=== PATIENT | female | born 1995 | race Hispanic/Latino ===

== ENCOUNTER 2018-02-20 18:29 | Emergency (ER) | payer OTHER, SELFPAY ==
[2018-02-20] MEDS ORDERED: ONDANSETRON 4 MG/2 ML VIAL ONE (19:23)
[2018-02-20] MEDS ORDERED: NA CHLORIDE 0.9% 1,000 ML ONE (19:23)
[2018-02-20] MEDS ORDERED: FAMOTIDINE 20 MG/2 ML VIAL IV ONE (19:23)
[2018-02-20 19:44] LABS: Absolute Lymphocytes (CBC) 1.2 K/uL (0.7-4.9); Absolute Monocytes 0.5 K/uL (0.1-1.3); Absolute Neutrophil 2.7 K/uL (1.8-8.0); Basophils % 0.4 % (0-1.3); Eosinophils % 0.9 % (0-4.4); Lymphocytes % 26.3 % (15.3-44.8); MCH 30.9 pg (27.0-35.0); MCV 90.6 fL (80-100); MPV 10.6 fL (7.6-11.3); Monocytes % 11.6 % (3.3-12.3); RBC Red Blood Cell Count 4.19 M/uL (3.86-4.86)
--- NOTE | 2018-02-20 20:10 | RAD REPORT ---
EXAM DESCRIPTION: RAD - Chest Single View - 02/20/2018 7:49 pm CLINICAL HISTORY: Abdominal pain COMPARISON: June 2015 TECHNIQUE: AP portable chest image was obtained 1941 hours . FINDINGS: Lungs are clear. Heart and vasculature are normal. No measurable pleural effusion and no p neumothorax. No acute bony abnormality seen. No acute aortic findings suspected. IMPRESSION: No acute cardiopulmonary process. No significant interval change.
[2018-02-20 20:13] LABS: ALT/SGPT 21 U/L (12-78); AST/SGOT 16 U/L (15-37); Albumin 3.9 g/dL (3.4-5.0); Alkaline Phosphatase 62 U/L (45-117); BUN Blood Urea Nitrogen 9 mg/dL (7-18); Bicarbonate 26 mmol/L (21-32); Bilirubin Direct 0.1 mg/dL (0-0.2); Bilirubin Total 0.4 mg/dL (0.2-1.0); Glucose Level 84 mg/dL (74-106); Lipase 148 U/L (73-393); Potassium 3.2 mmol/L (3.5-5.1); Protein, Total 7.9 g/dL (6.4-8.2); Sodium Level 143 mmol/L (136-145)
--- NOTE | 2018-02-20 20:17 | RAD REPORT ---
EXAM DESCRIPTION: US - Abdomen Exam Limited - 02/20/2018 7:48 pm CLINICAL HISTORY: Abdominal pain COMPARISON: CT study March 2016 FINDINGS: No gallstones, sludge or other abnormalities within the gallbladder lumen. There is no wal l thickening or pericholecystic fluid. No common duct stone or biliary tree dilatation identified. IMPRESSION: Normal gallbladder and biliary tree ultrasound.
[2018-02-20 21:10] LABS: Urine Blood 1+ (NEG); Urine Glucose NEGATIVE (NEG); Urine Protein TRACE (NEG); Urine Specific Gravity >1.030 (1.005-1.030); Urine pH 5.5 (5.0-7.0)
[2018-02-20] MEDS ORDERED: POTASSIUM 25 MEQ EFFERV TAB ONE (21:18)
--- NOTE | 2018-02-20 21:56 | ER ---
Nurse's Notes [facility] Name: Milka Sanchez Age: 22 yrs Sex: Female : 1995 Arrival Date: 02/20/2018 Time: 18:31 Bed 26 Private MD: Diagnosis: Nausea and vomiting;Unspecified abdominal pain Presentation: 02/20 18:40 Presenting complaint: Patient states: lower abd pain, nausea and vomiting since last aa5 night. Pt denies diarrhea. Transition of care: patient was not received from another setting of care. Onset of symptoms was February 19, 2018. Risk Assessment: Do you want to hurt yourself or someone else? Patient reports no desire to harm self or others. Initial Sepsis Screen: Does the patient meet any 2 criteria? No. Patient's initial sepsis screen is negative. Does the patient have a suspected source of infection? No. Patient's initial sepsis screen is negative. Care prior to arrival: None. 18:40 Method Of Arrival: Ambulatory aa5 18:40 Acuity: QUAN 3 aa5 Triage Assessment: 23:00 General: Appears in no apparent distress. comfortable, Behavior is calm, cooperative. mg2 EENT: No deficits noted. Neuro: Level of Consciousness is awake, alert, obeys commands, Oriented to person, place, time, situation. Cardiovascular: No deficits noted. Respiratory: No deficits noted. GI: Pt is actively vomiting undigested food. : No deficits noted. Derm: Skin is intact, is healthy with good turgor, Skin is pink, warm \T\ dry. normal. Musculoskeletal: No signs and/or symptoms reported regarding the musculoskeletal system. 02/21 00:07 Pain: Complains of pain in abdomen. 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 - Social history:: Smoking status: Patient/guardian denies using tobacco. - Ebola Screening: : No symptoms or risks identified at this time. Screenin:30 Abuse screen: Denies threats or abuse. Denies injuries from another. Nutritional mg2 screening: No deficits noted. Tuberculosis screening: No symptoms or risk factors identified. Fall Risk IV access (20 points). Assessment: 22:00 GI: Bowel sounds present X 4 quads. Abd is soft and non tender. mg2 22:06 General: Appears in no apparent distress. uncomfortable, Behavior is calm, cooperative. mg2 Vital Signs: 18:41 BP 98 / 73; Pulse 95; Resp 18 S; Temp 98.5(TE); Pulse Ox 98% on R/A; Weight 60.78 kg aa5 (R); Height 5 ft. 2 in. (157.48 cm) (R); Pain 10/10; 19:31 BP 91 / 58; Pulse 79; Resp 18; Pulse Ox 100% on R/A; mg2 21:16 BP 90 / 65; Pulse 83; Resp 18; Pulse Ox 100% on R/A; Pain 0/10; mg2 18:41 Body Mass Index 24.51 (60.78 kg, 157.48 cm) aa5 ED Course: 18:31 Patient arrived in ED. tw3 18:41 Triage completed. aa5 18:41 Arm band placed on. aa5 18:48 Bob Jensen PA is PHCP. cp 18:48 Sav Salazar MD is Attending Physician. cp 18:48 Luis Angel Layne RN is Primary Nurse. mg2 19:30 No provider procedures requiring assistance completed. Inserted saline lock: 20 gauge mg2 in right antecubital area, using aseptic technique. Blood collected. 19:31 Patient has correct armband on for positive identification. Bed in low position. Call mg2 light in reach. Side rails up X 1. Pulse ox on. NIBP on. 19:48 US Abdomen Limited: RUQ/epigastric area In Process Unspecified. EDMS 19:49 XRAY Chest (1 view) In Process Unspecified. EDMS 22:15 IV discontinued, intact, bleeding controlled, No redness/swelling at site. Pressure mg2 dressing applied. Administered Medications: 19:29 Drug: NS 0.9% 1000 ml Route: IV; Rate: 1 bolus; Site: right antecubital; mg2 21:10 Follow up: Response: No adverse reaction; IV Status: Completed infusion mg2 19:30 Drug: Zofran 4 mg Route: IVP; Site: right antecubital; mg2 21:09 Follow up: Response: No adverse reaction; Marked relief of symptoms mg2 19:30 Drug: Pepcid 20 mg Route: IVP; Site: right antecubital; mg2 21:09 Follow up: Response: No adverse reaction; Marked relief of symptoms mg2 21:15 Drug: Potassium Effervescent Tablet 50 mEq Route: PO; mg2 21:15 Follow up: Response: No adverse reaction mg2 Outcome: 21:55 Discharge ordered by MD. cp 22:20 Discharged to home ambulatory, with family. mg2 22:20 Condition: stable 22:20 Discharge instructions given to patient, family, Instructed on discharge instructions, follow up and referral plans. medication usage, Demonstrated understanding of instructions, follow-up care, medications, Prescriptions given X 2. 22:22 Patient left the ED. mg2 Signatures: Dispatcher [employer] EDDory Mcbride, RN RN aa5 Bob Jensen PA PA cp Wade, Emily tw3 Luis Angel Layne RN RN mg2 Corrections: (The following items were deleted from the chart) 02/21 00:26 02/20 22:16 Patient left the ED. mg2 mg2
--- NOTE | 2018-02-20 21:56 | EDPHYS ---
Physician Documentation [facility] Name: Milka Sanchez Age: 22 yrs Sex: Female : 1995 Arrival Date: 02/20/2018 Time: 18:31 Bed 26 Private MD: ED Physician Sav Salazar HPI: 02/20 19:00 This 22 yrs old Female presents to ER via Ambulatory with complaints of cp Abdominal Pain. 19:00 The patient presents with abdominal pain in the upper abdomen. cp 19:00 Onset: The symptoms/episode began/occurred yesterday. Associated signs and symptoms: cp Pertinent positives: nausea and vomiting, Pertinent negatives: constipation, diarrhea, dysuria, fever, vomiting blood. Severity of pain: in the emergency department the pain is unchanged despite home interventions. 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 - Social history:: Smoking status: Patient/guardian denies using tobacco. - Ebola Screening: : No symptoms or risks identified at this time. ROS: 19:08 Constitutional: Positive for poor PO intake, Negative for body aches, chills, fever. cp 19:08 Eyes: Negative for injury, pain, redness, and discharge. cp 19:08 ENT: Negative for drainage from ear(s), ear pain, sore throat, difficulty swallowing, difficulty handling secretions. 19:08 Cardiovascular: Negative for chest pain, edema, palpitations. 19:08 Respiratory: Negative for cough, shortness of breath, wheezing. 19:08 Abdomen/GI: Positive for abdominal pain, nausea and vomiting, Negative for diarrhea, constipation, hematemesis, black/tarry stool, rectal bleeding. 19:08 Back: Negative for radiated pain. 19:08 : Positive for vaginal bleeding, Negative for urinary symptoms. 19:08 Skin: Negative for cellulitis, rash. 19:08 Neuro: Negative for altered mental status, dizziness, headache, weakness. 19:08 All other systems are negative. Exam: 19:13 Constitutional: The patient appears in no acute distress, alert, awake, non-toxic, well cp developed, well nourished, uncomfortable. 19:13 Head/Face: Normocephalic, atraumatic. Eyes: Pupils equal round and reactive to light, cp extra-ocular motions intact. Lids and lashes normal. Conjunctiva and sclera are non-icteric and not injected. Cornea within normal limits. Periorbital areas with no swelling, redness, or edema. ENT: Nares patent. No nasal discharge, no septal abnormalities noted. Tympanic membranes are normal and external auditory canals are clear. Oropharynx with no redness, swelling, or masses, exudates, or evidence of obstruction, uvula midline. Mucous membranes moist. Neck: Trachea midline, no thyromegaly or masses palpated, and no cervical lymphadenopathy. Supple, full range of motion without nuchal rigidity, or vertebral point tenderness. No Meningismus. Chest/axilla: Normal chest wall appearance and motion. Nontender with no deformity. No lesions are appreciated. 19:13 Cardiovascular: Rate: normal, Rhythm: regular, Heart sounds: murmur, not appreciated. 19:13 Respiratory: the patient does not display signs of respiratory distress, Respirations: normal, no use of accessory muscles, no retractions, no splinting, no tachypnea, labored breathing, is not present, Breath sounds: are clear throughout, no decreased breath sounds, no stridor, no wheezing. 19:13 Abdomen/GI: Inspection: abdomen appears normal, Bowel sounds: active, all quadrants, Palpation: soft, in all quadrants, moderate abdominal tenderness, in the epigastric area, right upper quadrant and left upper quadrant, rebound tenderness, is not appreciated, voluntary guarding, is elicited in the epigastric area, right upper quadrant and left upper quadrant. 19:13 Back: ROM is normal. 19:13 Skin: cellulitis, is not appreciated, no rash present. 19:13 Neuro: Orientation: to person, place \T\ time. Mentation: lucid, able to follow commands, Cerebellar function: is grossly normal, Motor: moves all fours, strength is normal, Sensation: no obvious gross deficits. Vital Signs: 18:41 BP 98 / 73; Pulse 95; Resp 18 S; Temp 98.5(TE); Pulse Ox 98% on R/A; Weight 60.78 kg aa5 (R); Height 5 ft. 2 in. (157.48 cm) (R); Pain 10/10; 19:31 BP 91 / 58; Pulse 79; Resp 18; Pulse Ox 100% on R/A; mg2 21:16 BP 90 / 65; Pulse 83; Resp 18; Pulse Ox 100% on R/A; Pain 0/10; mg2 18:41 Body Mass Index 24.51 (60.78 kg, 157.48 cm) aa5 MDM: 18:48 Patient medically screened. cp 19:00 Differential diagnosis: cholecystitis, Cholelithiasis, gastritis, non-specific abd cp pain, pancreatitis, Peptic Ulcer Disease, Perf. Duodenal Ulcer, Perf. Gastric Ulcer, Pelvic Inflammatory Disease, Pyelonephritis, Ureterolithiasis, urinary tract infection. 21:55 Data reviewed: vital signs, nurses notes, lab test result(s), radiologic studies, cp ultrasound. 21:55 Counseling: I had a detailed discussion with the patient and/or guardian regarding: the cp historical points, exam findings, and any diagnostic results supporting the discharge/admit diagnosis, lab results, radiology results, to return to the emergency department if symptoms worsen or persist or if there are any questions or concerns that arise at home. Response to treatment: the patient's symptoms have markedly improved after treatment, VSS. Pain and nausea markedly improved and vomiting resolved. Will discharge to home for continued monitoring. 02/20 19:14 Order name: Basic Metabolic Panel; Complete Time: 20:27 cp 02/20 19:14 Order name: CBC with Diff; Complete Time: 20:27 cp 02/20 19:14 Order name: Creatinine for Radiology; Complete Time: 20:27 cp 02/20 19:14 Order name: Hepatic Function; Complete Time: 20:27 cp 02/20 19:14 Order name: Lipase; Complete Time: 20:27 cp 02/20 19:21 Order name: Magnesium; Complete Time: 20:27 cp 02/20 19:22 Order name: US Abdomen Limited: RUQ/epigastric area; Complete Time: 20:27 cp 02/20 19:22 Order name: XRAY Chest (1 view); Complete Time: 20:27 cp 02/20 19:28 Order name: Urine Dipstick--Ancillary (enter results); Complete Time: 21:19 mw2 02/20 19:28 Order name: Urine --Ancillary (enter results); Complete Time: 21:19 mw2 02/20 18:54 Order name: Urine Dipstick-Ancillary (obtain specimen); Complete Time: 19:14 cp 02/20 18:54 Order name: Urine Test (obtain specimen); Complete Time: 19:14 cp 02/20 19:14 Order name: IV Saline Lock; Complete Time: 19:14 cp 02/20 19:14 Order name: Labs collected and sent; Complete Time: 19:14 cp 02/20 21:20 Order name: PO challenge; Complete Time: 21:38 cp Administered Medications: 19:29 Drug: NS 0.9% 1000 ml Route: IV; Rate: 1 bolus; Site: right antecubital; mg2 21:10 Follow up: Response: No adverse reaction; IV Status: Completed infusion mg2 19:30 Drug: Zofran 4 mg Route: IVP; Site: right antecubital; mg2 21:09 Follow up: Response: No adverse reaction; Marked relief of symptoms mg2 19:30 Drug: Pepcid 20 mg Route: IVP; Site: right antecubital; mg2 21:09 Follow up: Response: No adverse reaction; Marked relief of symptoms mg2 21:15 Drug: Potassium Effervescent Tablet 50 mEq Route: PO; mg2 21:15 Follow up: Response: No adverse reaction mg2 Disposition: 02/20/18 21:55 Discharged to Home. Impression: Nausea and vomiting, Unspecified abdominal pain. - Condition is Stable. - Discharge Instructions: Abdominal Pain, Adult, Nausea and Vomiting, Adult. - Prescriptions for Bentyl 20 mg Oral Tablet - take 1 tablet by ORAL route every 6 hours As needed; 20 tablet. promethazine 25 mg Oral Tablet - take 1 tablet by ORAL route every 6 hours As needed; 20 tablet. - Medication Reconciliation Form, Thank You Letter, Antibiotic Education, Prescription Opioid Use, Work release form form. - Follow up: Private Physician; When: 2 - 3 days; Reason: Recheck today's complaints. - Problem is new. - Symptoms have improved. Signatures: Dispatcher [employer] Dory Disla, RN RN aa5 Bob Jensen PA PA cp Gardose, Michele, RN RN mg2 Corrections: (The following items were deleted from the chart) 22:16 21:55 02/20/2018 21:55 Discharged to Home. Impression: Nausea and vomiting; Unspecified mg2 abdominal pain. Condition is Stable. Forms are Medication Reconciliation Form, Thank You Letter, Antibiotic Education, Prescription Opioid Use. Follow up: Private Physician; When: 2 - 3 days; Reason: Recheck today's complaints. Problem is new. Symptoms have improved. cp
[2018-02-20 22:21] VITALS: TEMP 98.5
[2018-02-20 22:22] VITALS: O2SAT 100
[2018-02-20 22:23] VITALS: BP 90/65
== END 2018-02-20 22:16 | disposition home or self-care (01) ==
LOC: ER 18:29
DX: R10.10 Upper abdominal pain, unspecified (principal); R11.2 Nausea with vomiting, unspecified; Z88.0 Allergy status to penicillin; Z88.6 Allergy status to analgesic agent
CPT/HCPCS: 36415; 71045; 76705; 80048; 80076; 81003; 81025; 83690; 83735; 85025; 96361; 96374; 96375; 99284; J2405; J7030

== ENCOUNTER 2018-04-23 18:39 | Emergency (ER) | payer SELFPAY ==
[2018-04-23] MEDS ORDERED: CLINDAMYCIN 900MG/D5W 900 MG/50 ML IVPB IV ONE (20:02)
[2018-04-23] MEDS ORDERED: NA CHLORIDE 0.9% 1,000 ML ONE (20:03)
[2018-04-23] MEDS ORDERED: DEXAMETHASONE 10 MG/ML VIAL ONE ×2 (20:03→20:43)
[2018-04-23] MEDS ORDERED: NA CHLORIDE 0.9% 100 ML IV ONE (20:03)
[2018-04-23 20:30] LABS: Urine Blood 2+ (NEG); Urine Glucose NEGATIVE (NEG); Urine Protein 2+ (NEG); Urine Specific Gravity >1.030 (1.005-1.030)
--- NOTE | 2018-04-23 20:35 | ER ---
Nurse's Notes [facility] Name: Milka Sanchez Age: 22 yrs Sex: Female : 1995 Arrival Date: 04/23/2018 Time: 18:41 Bed 26 Private MD: None, None Diagnosis: Acute tonsillitis Presentation: 04/23 18:59 Presenting complaint: Patient states: "My tonsils have been swollen for 4 days, my ears aj1 hurt and the back of my neck hurts" Patient's voice sounds muffled. Tonsil are enlarged bilaterally, white patchy exudate noted. Transition of care: patient was not received from another setting of care. Onset of symptoms was April 19, 2018. Risk Assessment: Do you want to hurt yourself or someone else? Patient reports no desire to harm self or others. Initial Sepsis Screen: Does the patient meet any 2 criteria? HR > 90 bpm. No. Patient's initial sepsis screen is negative. Does the patient have a suspected source of infection? No. Patient's initial sepsis screen is negative. Care prior to arrival: None. 18:59 Method Of Arrival: Ambulatory aj1 18:59 Acuity: QUAN 4 aj1 Triage Assessment: 19:04 General: Appears in no apparent distress. comfortable, Behavior is calm, cooperative, aj1 appropriate for age. Pain: Complains of pain in left aspect of posterior pharynx and right aspect of posterior pharynx Pain currently is 10 out of 10 on a pain scale. EENT: Throat is reddened has patchy exudate has enlarged tonsils bilaterally. Neuro: Level of Consciousness is awake, alert, obeys commands. Cardiovascular: Patient's skin is warm and dry. Respiratory: Airway is patent Respiratory effort is even, unlabored, Respiratory pattern is regular, symmetrical. 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 - Social history:: Smoking status: Patient uses tobacco products, denies chronic smoking, but will smoke occasionally. - Ebola Screening: : Patient denies travel to an Ebola-affected area in the 21 days before illness onset. - Family history:: not pertinent. Screenin:34 Abuse screen: Denies threats or abuse. Denies injuries from another. Nutritional rv screening: No deficits noted. Tuberculosis screening: No symptoms or risk factors identified. Fall Risk None identified. Assessment: 19:33 General: Appears in no apparent distress. comfortable, Behavior is calm, cooperative. rv Pain: Complains of pain in throat. Neuro: Level of Consciousness is awake, alert, obeys commands, Oriented to person, place, time, situation. Cardiovascular: Capillary refill < 3 seconds. Respiratory: Airway is patent. GI: No signs and/or symptoms were reported involving the gastrointestinal system. : No signs and/or symptoms were reported regarding the genitourinary system. EENT: Throat is reddened. Derm: Skin is intact. Musculoskeletal: No signs and/or symptoms reported regarding the musculoskeletal system. Vital Signs: 19:04 BP 100 / 61; Pulse 115; Resp 20; Temp 99.0; Pulse Ox 100% on R/A; Weight 58.97 kg (R); aj1 Height 5 ft. 2 in. (157.48 cm) (R); Pain 10/10; 21:19 BP 103 / 72; Pulse 98 MON; Resp 17 S; Pulse Ox 99% on R/A; rv 19:04 Body Mass Index 23.78 (58.97 kg, 157.48 cm) aj1 ED Course: 18:41 Patient arrived in ED. sb2 18:41 None, None is Private Physician. sb2 19:04 Triage completed. aj1 19:16 Bob Valdez MD is Attending Physician. [facility] 19:34 Patient has correct armband on for positive identification. Bed in low position. Call rv light in reach. Side rails up X 1. Adult w/ patient. Pulse ox on. NIBP on. 19:34 Patient placed in an exam room, on a stretcher, on pulse oximetry, Patient notified of rv wait time. 20:00 Inserted saline lock: 18 gauge in right antecubital area, using aseptic technique. rv Blood collected. 20:00 Initial lab(s) drawn, by mi, sent to lab. rv 20:09 Throat Culture Sent. rv 20:10 Traill Screen Profile Sent. rv 20:10 CBC with Diff Sent. rv 20:10 Comprehensive Metabolic Panel Sent. rv 20:34 Rosa M Huynh MD is Referral Physician. vanesa 21:18 No provider procedures requiring assistance completed. IV discontinued, bleeding rv controlled, No redness/swelling at site. Pressure dressing applied. Administered Medications: 20:10 Drug: NS 0.9% 1000 ml Route: IV; Rate: 1 bolus; Site: right antecubital; rv 20:36 Follow up: IV Status: Completed infusion; IV Intake: 1000ml rv 20:10 Drug: Decadron - Dexamethasone 10 mg Route: IVP; Site: right antecubital; rv 20:36 Follow up: Response: No adverse reaction rv 20:10 Drug: Clindamycin 900 mg Route: IVPB; Infused Over: 30 mins; Site: right antecubital; rv 20:36 Follow up: IV Status: Completed infusion; IV Intake: 50ml rv 20:35 Drug: Decadron - Dexamethasone 10 mg Route: IVP; Site: right antecubital; rv 21:20 Follow up: Response: No adverse reaction rv 21:20 Drug: Clindamycin 300 mg Route: PO; rv 21:20 Follow up: Response: Medication administered at discharge. rv Intake: 20:36 IV: 1000ml; Total: 1000ml. rv 20:36 IV: 50ml; Total: 1050ml. rv Outcome: 20:34 Discharge ordered by . vanesa 21:18 Discharged to home ambulatory. rv 21:18 Condition: good 21:18 Discharge instructions given to patient, Instructed on discharge instructions, follow up and referral plans. medication usage, Demonstrated understanding of instructions, follow-up care, medications, Prescriptions given X 1. 21:20 Patient left the ED. rv Signatures: Mayela Oneal, RN RN aj1 Bob Valdez MD MD cha Billeau, Sheri sb2 Maximo Encarnacion RN RN rv
--- NOTE | 2018-04-23 20:35 | EDPHYS ---
Physician Documentation [facility] Name: Milka Sanchez Age: 22 yrs Sex: Female : 1995 Arrival Date: 04/23/2018 Time: 18:41 Bed 26 Private MD: None, None ED Physician Bob Valdez HPI: 04/23 19:48 This 22 yrs old Female presents to ER via Ambulatory with complaints of vanesa Swollen Glands, Fever, Ear Pain. 19:48 The patient reports fever, that was measured at 100 degrees Fahrenheit. Onset: The vanesa symptoms/episode began/occurred 3 day(s) ago. Modifying factors: there are no obvious modifying factors. Associated signs and symptoms: Pertinent positives: chills. Severity of symptoms: At their worst the symptoms were moderate 3 day(s) ago, in the emergency department the symptoms are unchanged are worse. The patient has not experienced similar symptoms in the past. NITRO MAN: 19:04 LMP 04/18/2018 aj1 Historical: - Allergies: 19:04 Hydrocodone-Acetaminophen; aj1 19:04 PENICILLINS; aj1 - Home Meds: 19:04 None [Active]; aj1 - PMHx: 19:04 None; aj1 - PSHx: 19:04 Appendectomy; aj1 - Immunization history:: Flu vaccine is not up to date. - Social history:: Smoking status: Patient uses tobacco products, denies chronic smoking, but will smoke occasionally. - Ebola Screening: : Patient denies travel to an Ebola-affected area in the 21 days before illness onset. - Family history:: not pertinent. ROS: 19:48 Constitutional: Negative for fever, chills, and weight loss, Eyes: Negative for injury, vanesa pain, redness, and discharge, Neck: Negative for injury, pain, and swelling, Cardiovascular: Negative for chest pain, palpitations, and edema, Respiratory: Negative for shortness of breath, cough, wheezing, and pleuritic chest pain, Abdomen/GI: Negative for abdominal pain, nausea, vomiting, diarrhea, and constipation, Back: Negative for injury and pain, : Negative for injury, bleeding, discharge, and swelling, MS/Extremity: Negative for injury and deformity, Skin: Negative for injury, rash, and discoloration, Neuro: Negative for headache, weakness, numbness, tingling, and seizure, Psych: Negative for depression, anxiety, suicide ideation, homicidal ideation, and hallucinations, Allergy/Immunology: Negative for hives, rash, and allergies, Endocrine: Negative for neck swelling, polydipsia, polyuria, polyphagia, and marked weight changes, Hematologic/Lymphatic: Negative for swollen nodes, abnormal bleeding, and unusual bruising. 19:48 ENT: Positive for sinus congestion, sore throat. Exam: 19:48 Constitutional: This is a well developed, well nourished patient who is awake, alert, vanesa and in no acute distress. Head/Face: Normocephalic, atraumatic. Eyes: Pupils equal round and reactive to light, extra-ocular motions intact. Lids and lashes normal. Conjunctiva and sclera are non-icteric and not injected. Cornea within normal limits. Periorbital areas with no swelling, redness, or edema. Neck: Trachea midline, no thyromegaly or masses palpated, and no cervical lymphadenopathy. Supple, full range of motion without nuchal rigidity, or vertebral point tenderness. No Meningismus. Chest/axilla: Normal chest wall appearance and motion. Nontender with no deformity. No lesions are appreciated. Respiratory: Lungs have equal breath sounds bilaterally, clear to auscultation and percussion. No rales, rhonchi or wheezes noted. No increased work of breathing, no retractions or nasal flaring. Abdomen/GI: Soft, non-tender, with normal bowel sounds. No distension or tympany. No guarding or rebound. No evidence of tenderness throughout. Back: No spinal tenderness. No costovertebral tenderness. Full range of motion. Female : Normal external genitalia. Skin: Warm, dry with normal turgor. Normal color with no rashes, no lesions, and no evidence of cellulitis. MS/ Extremity: Pulses equal, no cyanosis. Neurovascular intact. Full, normal range of motion. Neuro: Awake and alert, GCS 15, oriented to person, place, time, and situation. Cranial nerves II-XII grossly intact. Motor strength 5/5 in all extremities. Sensory grossly intact. Cerebellar exam normal. Normal gait. Psych: Awake, alert, with orientation to person, place and time. Behavior, mood, and affect are within normal limits. 19:48 Cardiovascular: Rate: tachycardic, Rhythm: regular, Pulses: Pulses are 4+ in bilateral radial, brachial, femoral, popliteal, posterior tibial and and dorsalis pedis arteries.. Heart sounds: normal, JVD: is not appreciated. Vital Signs: 19:04 BP 100 / 61; Pulse 115; Resp 20; Temp 99.0; Pulse Ox 100% on R/A; Weight 58.97 kg (R); aj1 Height 5 ft. 2 in. (157.48 cm) (R); Pain 10/10; 21:19 BP 103 / 72; Pulse 98 MON; Resp 17 S; Pulse Ox 99% on R/A; rv 19:04 Body Mass Index 23.78 (58.97 kg, 157.48 cm) [facility] MDM: 19:16 Patient medically screened. [facility] 19:48 Data reviewed: vital signs, nurses notes, lab test result(s). [facility] 04/23 19:06 Order name: Strep; Complete Time: 19:48 [facility] 04/23 19:30 Order name: Throat Culture EDIL 04/23 19:48 Order name: [place] Screen Profile; Complete Time: 20:34 [facility] 04/23 19:48 Order name: CBC with Diff [facility] 04/23 19:48 Order name: Comprehensive Metabolic Panel; Complete Time: 20:40 [facility] 04/23 20:26 Order name: Urine Dipstick--Ancillary (enter results); Complete Time: 20:34 [facility] 04/23 19:48 Order name: Urine Dipstick-Ancillary (obtain specimen); Complete Time: 20:09 [facility] 04/23 19:48 Order name: Urine Test (obtain specimen); Complete Time: 20:09 [facility] 04/23 20:26 Order name: Urine --Ancillary (enter results); Complete Time: 20:34 [facility] 04/23 20:41 Order name: PO challenge: juice; Complete Time: 20:44 [facility] Administered Medications: 20:10 Drug: NS 0.9% 1000 ml Route: IV; Rate: 1 bolus; Site: right antecubital; rv 20:36 Follow up: IV Status: Completed infusion; IV Intake: 1000ml rv 20:10 Drug: Decadron - Dexamethasone 10 mg Route: IVP; Site: right antecubital; rv 20:36 Follow up: Response: No adverse reaction rv 20:10 Drug: Clindamycin 900 mg Route: IVPB; Infused Over: 30 mins; Site: right antecubital; rv 20:36 Follow up: IV Status: Completed infusion; IV Intake: 50ml rv 20:35 Drug: Decadron - Dexamethasone 10 mg Route: IVP; Site: right antecubital; rv 21:20 Follow up: Response: No adverse reaction rv 21:20 Drug: Clindamycin 300 mg Route: PO; rv 21:20 Follow up: Response: Medication administered at discharge. rv Disposition: 04/23/18 20:34 Discharged to Home. Impression: Acute tonsillitis. - Condition is Stable. - Discharge Instructions: Tonsillitis, Tonsillitis, [id number]. - Prescriptions for Clindamycin HCl 300 mg Oral Capsule - take 1 capsule by ORAL route every 6 hours for 10 days; 40 capsule. - Medication Reconciliation Form, Thank You Letter, Antibiotic Education, Prescription Opioid Use, Work release form form. - Follow up: Private Physician; When: 2 - 3 days; Reason: Recheck today's complaints, Continuance of care, Re-evaluation by your physician. Follow up: Rosa M Huynh; When: 2 - 3 days; Reason: Recheck today's complaints, Re-evaluation by your physician. - Problem is new. - Symptoms have improved. Signatures: Dispatcher [employer] EDMayela lAamo RN RN aj1 Bob Valdez MD MD cha Vicente, Ronaldo, RN RN rv Corrections: (The following items were deleted from the chart) 21:20 20:34 04/23/2018 20:34 Discharged to Home. Impression: Acute tonsillitis. Condition is rv Stable. Discharge Instructions: Tonsillitis, Tonsillitis, [id number]. Prescriptions for Clindamycin HCl 300 mg Oral Capsule - take 1 capsule by ORAL route every 6 hours for 10 days; 40 capsule. and Forms are Medication Reconciliation Form, Thank You Letter, Antibiotic Education, Prescription Opioid Use. Follow up: Private Physician; When: 2 - 3 days; Reason: Recheck today's complaints, Continuance of care, Re-evaluation by your physician. Follow up: Rosa M Huynh; When: 2 - 3 days; Reason: Recheck today's complaints, Re-evaluation by your physician. Problem is new. Symptoms have improved. vanesa
[2018-04-23 20:38] LABS: ALT/SGPT 25 U/L (12-78); AST/SGOT 15 U/L (15-37); Albumin 3.9 g/dL (3.4-5.0); Alkaline Phosphatase 87 U/L (45-117); BUN Blood Urea Nitrogen 7 mg/dL (7-18); Bicarbonate 24 mmol/L (21-32); Bilirubin Total 0.6 mg/dL (0.2-1.0); Glucose Level 73 mg/dL (74-106); Potassium 3.4 mmol/L (3.5-5.1); Protein, Total 8.6 g/dL (6.4-8.2); Sodium Level 133 mmol/L (136-145)
[2018-04-23 20:42] LABS: Absolute Lymphocytes (CBC) 1.1 K/uL (0.7-4.9); Absolute Monocytes 1.2 K/uL (0.1-1.3); Basophils % 0.3 % (0-1.3); Eosinophils % 0.1 % (0-4.4); Hematocrit 37.5 % (36.0-45.0); Lymphocytes % 10.6 % (15.3-44.8); MPV 10.3 fL (7.6-11.3); Monocytes % 11.5 % (3.3-12.3); RBC Red Blood Cell Count 4.22 M/uL (3.86-4.86)
[2018-04-23] MEDS ORDERED: CLINDAMYCIN HCL 150 MG CAP ONE (20:43)
[2018-04-23 23:00] VITALS: TEMP 99
[2018-04-23 23:02] VITALS: BP 103/72; O2SAT 99
== END 2018-04-23 21:20 | disposition home or self-care (01) ==
LOC: ER 18:39
DX: J03.90 Acute tonsillitis, unspecified (principal); Z72.0 Tobacco use; Z88.0 Allergy status to penicillin; Z88.5 Allergy status to narcotic agent
CPT/HCPCS: 36415; 80053; 81003; 81025; 85025; 86308; 87070; 87081; 96365; 96375; 99284; J1100; J7030

== ENCOUNTER 2019-02-27 20:12 | Emergency (ER) | payer SELFPAY ==
[2019-02-27 20:49] LABS: Urine Blood 2+ (NEG); Urine Glucose NEGATIVE (NEG); Urine Protein 2+ (NEG); Urine Specific Gravity >1.030 (1.005-1.030)
[2019-02-27] MEDS ORDERED: ONDANSETRON 4 MG/2 ML VIAL ONE (21:06)
[2019-02-27] MEDS ORDERED: NA CHLORIDE 0.9% 1,000 ML ONE (21:07)
[2019-02-27] MEDS ORDERED: SIMETHICONE 80 MG TAB ONE (21:07)
[2019-02-27 21:10] LABS: Urine Bacteria 20-50 /HPF (<20)
[2019-02-27 21:14] LABS: Urine Amorphous Sediment 3+ /HPF (NONE SEEN); Urine Culture Reflex Order NOT NEEDED
[2019-02-27 21:14] LABS: Absolute Lymphocytes (CBC) 1.9 K/uL (0.7-4.9); Basophils % 0.6 % (0-1.3); Hematocrit 35.6 % (36.0-45.0); Lymphocytes % 21.2 % (15.3-44.8); MPV 9.8 fL (7.6-11.3); RBC Red Blood Cell Count 3.93 M/uL (3.86-4.86)
[2019-02-27 21:32] LABS: ALT/SGPT 20 U/L (12-78); AST/SGOT 33 U/L (15-37); Albumin 3.8 g/dL (3.4-5.0); Alkaline Phosphatase 65 U/L (45-117); BUN Blood Urea Nitrogen 7 mg/dL (7-18); Bicarbonate 23 mmol/L (21-32); Bilirubin Direct < 0.1 mg/dL (0-0.2); Bilirubin Total 0.3 mg/dL (0.2-1.0); Glucose Level 91 mg/dL (74-106); Lipase 398 U/L (73-393); Potassium 3.2 mmol/L (3.5-5.1); Protein, Total 8.1 g/dL (6.4-8.2); Sodium Level 137 mmol/L (136-145)
--- NOTE | 2019-02-27 22:15 | ER ---
Nurse's Notes [facility] Name: Milka Sanchez Age: 23 yrs Sex: Female : 1995 Arrival Date: 02/27/2019 Time: 20:15 Bed 13 Private MD: Diagnosis: Upper abdominal pain, unspecified;Urinary tract infection, site not specified;Myalgia Presentation: 02/27 20:29 Presenting complaint: Patient states: C/O abdominal pain that started Friday, feels wh like cramping when she eats. Associated Symptoms of chills and fever nut denies NVD. Transition of care: patient was not received from another setting of care. Onset of symptoms was February 24, 2019. Risk Assessment: Do you want to hurt yourself or someone else? Patient reports no desire to harm self or others. Initial Sepsis Screen: Does the patient meet any 2 criteria? HR > 90 bpm. Does the patient have a suspected source of infection? Yes: Acute abdominal pain. Care prior to arrival: None. 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 - Social history:: Smoking status: Patient uses tobacco products. - Ebola Screening: : Patient negative for fever greater than or equal to 101.5 degrees Fahrenheit, and additional compatible Ebola Virus Disease symptoms Patient denies exposure to infectious person. Screenin:34 Abuse screen: Denies threats or abuse. Denies injuries from another. Nutritional screening: No deficits noted. Tuberculosis screening: No symptoms or risk factors identified. Fall Risk None identified. Assessment: 20:33 General: Appears in no apparent distress. Behavior is calm, cooperative, appropriate for age. Pain: Complains of pain in epigastric area and left upper quadrant Pain does not radiate. Pain currently is 8 out of 10 on a pain scale. Quality of pain is described as crampy, Pain began 2-3 days ago. Neuro: Level of Consciousness is awake, alert, obeys commands, Oriented to person, place, time, situation, Appropriate for age. Cardiovascular: Heart tones S1 S2. Respiratory: Airway is patent Respiratory effort is even, unlabored, Respiratory pattern is regular, symmetrical. GI: Abdomen is flat, non-distended, Bowel sounds present X 4 quads. Abd is soft. : No signs and/or symptoms were reported regarding the genitourinary system. EENT: No signs and/or symptoms were reported regarding the EENT system. Derm: Skin is intact, is healthy with good turgor, Skin is pink, warm \T\ dry. normal. Musculoskeletal: Circulation, motion, and sensation intact. 21:44 Reassessment: Patient appears in no apparent distress at this time. No changes from previously documented assessment. Patient and/or family updated on plan of care and expected duration. Pain level reassessed. Patient is alert, oriented x 3, equal unlabored respirations, skin warm/dry/pink. 22:42 Reassessment: Patient appears in no apparent distress at this time. No changes from previously documented assessment. Patient and/or family updated on plan of care and expected duration. Pain level reassessed. Patient is alert, oriented x 3, equal unlabored respirations, skin warm/dry/pink. Patient denies pain at this time. Patient states feeling better. Patient states symptoms have improved. Vital Signs: 20:31 BP 110 / 72; Pulse 117; Resp 18; Temp 98.5; Pulse Ox 98% ; Weight 69.85 kg; Height 5 wh ft. 2 in. (157.48 cm); 22:00 BP 103 / 62; Pulse 95; Resp 18; Temp 98.4; Pulse Ox 100% ; wh 20:31 Body Mass Index 28.17 (69.85 kg, 157.48 cm) ED Course: 20:15 Patient arrived in ED. es 20:20 Corinne Cantu is Primary Nurse. wh 20:30 [facility] Dumont [facility]-C [facility] snw 20:30 Bob Valdez MD is Attending Physician. snw 20:31 Triage completed. wh 20:35 Arm band placed on right wrist. wh 20:37 Patient has correct armband on for positive identification. Placed in gown. Bed in low wh position. Call light in reach. Side rails up X 1. Pulse ox on. NIBP on. 20:40 Urine Culture Sent. ds4 20:40 Urine Microscopic Only Sent. ds4 20:40 Inserted saline lock: 20 gauge in right antecubital area, using aseptic technique. Blood collected. By Naresh Funez TEch. 21:10 Lipase Sent. ds4 21:10 Basic Metabolic Panel Sent. ds4 21:10 Hepatic Function Sent. ds4 21:10 Creatinine for Radiology Sent. ds4 21:10 CBC with Diff Sent. ds4 21:11 Urine Culture Sent. ds4 21:11 Urine Microscopic Only Sent. ds4 22:08 Ultrasound completed. Patient tolerated well. Notified TUBE KNITTER/SANDRO buck. sg3 22:09 US Abdomen Limited In Process Unspecified. EDMS 22:42 IV discontinued, intact, bleeding controlled, No redness/swelling at site. 22:43 No provider procedures requiring assistance completed. Administered Medications: 21:10 Drug: NS 0.9% 1000 ml Route: IV; Rate: 1 bolus; Site: right antecubital; cc3 22:48 Follow up: Response: No adverse reaction; IV Status: Completed infusion 21:10 Drug: Zofran 4 mg Route: IVP; Site: right antecubital; cc3 22:47 Follow up: Response: No adverse reaction; Nausea is decreased 21:10 Drug: Simethicone 120 mg Route: PO; cc3 22:47 Follow up: Response: No adverse reaction 22:29 Drug: TORadol 30 mg Route: IVP; Site: right antecubital; 22:47 Follow up: Response: No adverse reaction 22:31 Drug: Bentyl 20 mg Route: PO; 22:47 Follow up: Response: No adverse reaction 22:33 Drug: Macrobid 100 mg Route: PO; 22:46 Follow up: Response: No adverse reaction Outcome: 22:14 Discharge ordered by . snw 22:43 Discharged to home ambulatory, with family. 22:43 Condition: stable 22:43 Discharge instructions given to patient, family, Instructed on discharge instructions, follow up and referral plans. medication usage, POC Abd Pain, UTI, Muscle Pain, Biliary Colic Demonstrated understanding of instructions, follow-up care, medications, POC Prescriptions given X 3. 22:48 Patient left the ED. Signatures: Dispatcher [employer] EDMS Larissa Dumont, AUTO TRANSPORT DRIVER-C AUTO TRANSPORT DRIVER-Csnw Carol Livingston Donovan ds4 Corinne Cantu Lasahun Grimm sg3 Rowan Sal cc3 Corrections: (The following items were deleted from the chart) 20:33 20:29 Initial Sepsis Screen: Does the patient meet any 2 criteria? No. Patient's initial sepsis screen is negative. Does the patient have a suspected source of infection? Yes: Acute abdominal pain
--- NOTE | 2019-02-27 22:16 | EDPHYS ---
Physician Documentation [facility] Name: Milka Sanchez Age: 23 yrs Sex: Female : 1995 Arrival Date: 02/27/2019 Time: 20:15 Bed 13 Private MD: ED Physician Bob Valdez HPI: 02/27 21:09 This 23 yrs old Female presents to ER via Ambulatory with complaints of snw Abdominal Pain, Fever. 21:09 The patient presents with abdominal pain in the epigastric area, in the upper abdomen. snw Onset: The symptoms/episode began/occurred suddenly, 2 day(s) ago, and became worse and became persistent. The symptoms do not radiate. Associated signs and symptoms: Pertinent positives: chills. The symptoms are described as crampy, vague. Severity of pain: At its worst the pain was moderate severe. The patient has not experienced similar symptoms in the past. The patient has not recently seen a physician. hx of appendectomy. 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 - Social history:: Smoking status: Patient uses tobacco products. - Ebola Screening: : Patient negative for fever greater than or equal to 101.5 degrees Fahrenheit, and additional compatible Ebola Virus Disease symptoms Patient denies exposure to infectious person. ROS: 21:09 Constitutional: Negative for fever, chills, and weight loss, Eyes: Negative for injury, snw pain, redness, and discharge, ENT: Negative for injury, pain, and discharge, Neck: Negative for injury, pain, and swelling, Cardiovascular: Negative for chest pain, palpitations, and edema, Respiratory: Negative for shortness of breath, cough, wheezing, and pleuritic chest pain, Back: Negative for injury and pain, : Negative for injury, bleeding, discharge, and swelling, MS/Extremity: Negative for injury and deformity, Skin: Negative for injury, rash, and discoloration, Neuro: Negative for headache, weakness, numbness, tingling, and seizure, Psych: Negative for depression, anxiety, suicide ideation, homicidal ideation, and hallucinations. 21:09 Abdomen/GI: Positive for abdominal pain, abdominal cramps. Exam: 20:57 Constitutional: This is a well developed, well nourished patient who is awake, alert, snw and in no acute distress. Head/Face: Normocephalic, atraumatic. Eyes: Pupils equal round and reactive to light, extra-ocular motions intact. Lids and lashes normal. Conjunctiva and sclera are non-icteric and not injected. Cornea within normal limits. Periorbital areas with no swelling, redness, or edema. ENT: Nares patent. No nasal discharge, no septal abnormalities noted. Tympanic membranes are normal and external auditory canals are clear. Oropharynx with no redness, swelling, or masses, exudates, or evidence of obstruction, uvula midline. Mucous membranes moist. Neck: Trachea midline, no thyromegaly or masses palpated, and no cervical lymphadenopathy. Supple, full range of motion without nuchal rigidity, or vertebral point tenderness. No Meningismus. Chest/axilla: Normal chest wall appearance and motion. Nontender with no deformity. No lesions are appreciated. Cardiovascular: Regular rate and rhythm with a normal S1 and S2. No gallops, murmurs, or rubs. Normal PMI, no JVD. No pulse deficits. Respiratory: Lungs have equal breath sounds bilaterally, clear to auscultation and percussion. No rales, rhonchi or wheezes noted. No increased work of breathing, no retractions or nasal flaring. Back: No spinal tenderness. No costovertebral tenderness. Full range of motion. Skin: Warm, dry with normal turgor. Normal color with no rashes, no lesions, and no evidence of cellulitis. MS/ Extremity: Pulses equal, no cyanosis. Neurovascular intact. Full, normal range of motion. Neuro: Awake and alert, GCS 15, oriented to person, place, time, and situation. Cranial nerves II-XII grossly intact. Motor strength 5/5 in all extremities. Sensory grossly intact. Cerebellar exam normal. Normal gait. Psych: Awake, alert, with orientation to person, place and time. Behavior, mood, and affect are within normal limits. 20:57 Abdomen/GI: Inspection: abdomen appears normal, Bowel sounds: normal, Palpation: moderate abdominal tenderness, in the epigastric area, right upper quadrant and left upper quadrant, Indicators: Street's sign is positive. Vital Signs: 20:31 BP 110 / 72; Pulse 117; Resp 18; Temp 98.5; Pulse Ox 98% ; Weight 69.85 kg; Height 5 wh ft. 2 in. (157.48 cm); 22:00 BP 103 / 62; Pulse 95; Resp 18; Temp 98.4; Pulse Ox 100% ; wh 20:31 Body Mass Index 28.17 (69.85 kg, 157.48 cm) wh MDM: 20:36 Patient medically screened. vanesa 22:12 Data reviewed: vital signs, nurses notes. Data interpreted: Pulse oximetry: on room air snw is 100 %. Interpretation: normal. Counseling: I had a detailed discussion with the patient and/or guardian regarding: the historical points, exam findings, and any diagnostic results supporting the discharge/admit diagnosis, lab results, radiology results, the need for outpatient follow up, to return to the emergency department if symptoms worsen or persist or if there are any questions or concerns that arise at home. Special discussion: Based on the patient's Hx, exam, and Dx evaluation, there is no indication for emergent surgery or inpatient Tx. It is understood by the patient/guardian that if the Sx's persist or worsen they need to return immediately for re-evaluation. Based on the history and exam findings, there is no indication for further emergent testing or inpatient evaluation. I discussed with the patient/guardian the need to see the primary care provider for further evaluation of the symptoms. 02/27 20:27 Order name: Urine Culture snw 02/27 20:27 Order name: Urine Microscopic Only; Complete Time: 21:39 snw 02/27 20:42 Order name: Urine Dipstick--Ancillary (enter results); Complete Time: 20:51 ds4 02/27 20:42 Order name: Urine --Ancillary (enter results); Complete Time: 20:51 ds4 02/27 20:51 Order name: Basic Metabolic Panel; Complete Time: 21:39 snw 02/27 20:51 Order name: CBC with Diff; Complete Time: 21:39 snw 02/27 20:51 Order name: Creatinine for Radiology; Complete Time: 21:39 snw 02/27 20:51 Order name: Hepatic Function; Complete Time: 21:39 snw 02/27 20:51 Order name: Lipase; Complete Time: 21:39 snw 02/27 20:51 Order name: US Abdomen Limited snw 02/27 20:27 Order name: Urine Test (obtain specimen); Complete Time: 20:40 snw 02/27 20:27 Order name: Urine Dipstick-Ancillary (obtain specimen); Complete Time: 20:40 snw 02/27 20:51 Order name: IV Saline Lock; Complete Time: 21:10 snw 02/27 20:51 Order name: Labs collected and sent; Complete Time: 21:10 snw Administered Medications: 21:10 Drug: NS 0.9% 1000 ml Route: IV; Rate: 1 bolus; Site: right antecubital; cc3 22:48 Follow up: Response: No adverse reaction; IV Status: Completed infusion 21:10 Drug: Zofran 4 mg Route: IVP; Site: right antecubital; cc3 22:47 Follow up: Response: No adverse reaction; Nausea is decreased 21:10 Drug: Simethicone 120 mg Route: PO; cc3 22:47 Follow up: Response: No adverse reaction 22:29 Drug: TORadol 30 mg Route: IVP; Site: right antecubital; 22:47 Follow up: Response: No adverse reaction 22:31 Drug: Bentyl 20 mg Route: PO; 22:47 Follow up: Response: No adverse reaction 22:33 Drug: Macrobid 100 mg Route: PO; 22:46 Follow up: Response: No adverse reaction Disposition: 02/27/19 22:14 Discharged to Home. Impression: Upper abdominal pain, unspecified, Urinary tract infection, site not specified, Myalgia. - Condition is Stable. - Discharge Instructions: Abdominal Pain, Adult, Biliary Colic, Adult, Muscle Pain, Adult, Urinary Tract Infection, Adult, Intestinal Gas and Gas Pains, Pediatric, Rehydration, Adult, Heat Therapy. - Prescriptions for Bentyl 20 mg Oral Tablet - take 1 tablet by ORAL route every 6 hours As needed; 20 tablet. Macrobid 100 mg Oral Capsule - take 1 capsule by ORAL route every 12 hours for 10 days; 20 capsule. Diclofenac Sodium 75 mg Oral Tablet Sustained Release - take 1 tablet by ORAL route 2 times per day; 30 tablet. - Work release form, Medication Reconciliation Form, Thank You Letter, Antibiotic Education, Prescription Opioid Use form. - Follow up: Private Physician; When: 2 - 3 days; Reason: Recheck today's complaints, Continuance of care, Re-evaluation by your physician. Follow up: Emergency Department; When: As needed; Reason: Worsening of condition. Addendum: 03/01/2019 08:56 Co-signature as Attending Physician, Bob Valdez MD I agree with the assessment and c king plan of care. Signatures: Dispatcher [employer] EDBob Rockwell MD MD cha Therrien, Shelly, DIRECTOR STATE PHARMACY-C DIRECTOR STATE PHARMACY-Csnw Corinne Cantu Charlene cc3 Corrections: (The following items were deleted from the chart) 02/27 22:48 22:14 02/27/2019 22:14 Discharged to Home. Impression: Upper abdominal pain, wh unspecified; Urinary tract infection, site not specified; Myalgia. Condition is Stable. Forms are Medication Reconciliation Form, Thank You Letter, Antibiotic Education, Prescription Opioid Use. Follow up: Private Physician; When: 2 - 3 days; Reason: Recheck today's complaints, Continuance of care, Re-evaluation by your physician. Follow up: Emergency Department; When: As needed; Reason: Worsening of condition. snw
[2019-02-27] MEDS ORDERED: DICYCLOMINE HCL 10 MG CAP ONE (22:28)
[2019-02-27] MEDS ORDERED: NITROFURAN MACRO 100 MG CAP PO ONE (22:28)
[2019-02-27] MEDS ORDERED: KETOROLAC 30 MG/ML INJ ONE (22:29)
[2019-02-28 00:41] VITALS: BP 110/72; TEMP 98.5; O2SAT 98
--- NOTE | 2019-02-28 10:58 | RAD REPORT ---
EXAM DESCRIPTION: US - Abdomen Exam Limited - 02/27/2019 10:07 pm CLINICAL HISTORY: ABD PAIN COMPARISON: Abdomen Exam Limited dated 02/20/2018 FINDINGS: The gallbladder demonstrates no gallstones. No pericholecystic fluid or gallbladder wall t hickening. The common bile duct is normal measuring 3 mm. The liver demonstrates no findings of intrahepatic biliary dilatation. IMPRESSION: Unremarkable examination.
== END 2019-02-27 22:48 | disposition home or self-care (01) ==
LOC: ER 20:12
DX: N39.0 Urinary tract infection, site not specified (principal); M79.10 Myalgia, unspecified site; R10.10 Upper abdominal pain, unspecified; Z88.0 Allergy status to penicillin; Z88.6 Allergy status to analgesic agent; Z72.0 Tobacco use
CPT/HCPCS: 36415; 76705; 80048; 80076; 81003; 81015; 81025; 83690; 85025; 87086; 87088; 96361; 96374; 96375; 99284; J2405; J7030

== ENCOUNTER 2019-04-24 19:07 | Emergency (ER) | payer SELFPAY ==
[2019-04-24 19:56] LABS: Urine Mucus 2+ /HPF (NONE SEEN)
[2019-04-24 19:57] LABS: Urine Bacteria 20-50 /HPF (<20); Urine Culture Reflex Order REFLEXED; Urine RBC NONE SEEN /HPF (NONE SEEN)
[2019-04-24] MEDS ORDERED: NITROFURAN MACRO 100 MG CAP PO ONE (20:00)
[2019-04-24 20:02] LABS: Urine Blood 1+ (NEG); Urine Glucose NEGATIVE (NEG); Urine Protein 1+ (NEG); Urine Specific Gravity >1.030 (1.005-1.030)
[2019-04-24 22:16] LABS: Absolute Lymphocytes (CBC) 2.2 K/uL (0.7-4.9); Basophils % 0.6 % (0-1.3); Lymphocytes % 25.4 % (15.3-44.8); MPV 9.2 fL (7.6-11.3); RBC Red Blood Cell Count 4.19 M/uL (3.86-4.86)
[2019-04-24 22:32] LABS: ALT/SGPT 21 U/L (12-78); AST/SGOT 10 U/L (15-37); Albumin 3.7 g/dL (3.4-5.0); Alkaline Phosphatase 82 U/L (45-117); BUN Blood Urea Nitrogen 10 mg/dL (7-18); Bicarbonate 24 mmol/L (21-32); Bilirubin Direct < 0.1 mg/dL (0-0.2); Bilirubin Total 0.3 mg/dL (0.2-1.0); Glucose Level 86 mg/dL (74-106); Lipase 135 U/L (73-393); Potassium 3.2 mmol/L (3.5-5.1); Sodium Level 137 mmol/L (136-145)
--- NOTE | 2019-04-24 23:41 | ER ---
Nurse's Notes [facility] Name: Milka Sanchez Age: 23 yrs Sex: Female : 1995 Arrival Date: 04/24/2019 Time: 19:11 Bed 18 Private MD: Diagnosis: Threatened ;Urinary tract infection, site not specified Presentation: 04/24 19:27 Presenting complaint: Patient states: "I've been having cramping pain down here and its aj1 hurting really bad" Patient also reports chills. Denies fever. Denies N/V/D. Transition of care: patient was not received from another setting of care. Onset of symptoms was April 24, 2019. Risk Assessment: Do you want to hurt yourself or someone else? Patient reports no desire to harm self or others. Initial Sepsis Screen: Does the patient meet any 2 criteria? HR > 90 bpm. No. Patient's initial sepsis screen is negative. Does the patient have a suspected source of infection? Yes: Acute abdominal pain. Care prior to arrival: None. 19:27 Method Of Arrival: Ambulatory aj1 19:27 Acuity: QUAN 3 aj1 Triage Assessment: 19:28 General: Appears in no apparent distress. comfortable, Behavior is calm, cooperative, aj1 appropriate for age. Pain: Complains of pain in right lower quadrant and left lower quadrant Pain currently is 8 out of 10 on a pain scale. Neuro: Level of Consciousness is awake, alert, obeys commands. Cardiovascular: Patient's skin is warm and dry. Respiratory: Airway is patent Respiratory effort is even, unlabored, Respiratory pattern is regular, symmetrical. GI: Reports lower abdominal pain, cramping. 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 - Social history:: Smoking status: Patient uses tobacco products, 3 cigarettes per day. - Ebola Screening: : Patient denies travel to an Ebola-affected area in the 21 days before illness onset. Screenin/22 00:04 Abuse screen: Denies threats or abuse. Denies injuries from another. Nutritional rv screening: No deficits noted. Tuberculosis screening: No symptoms or risk factors identified. Fall Risk None identified. Assessment: 04/24 21:00 General: Appears in no apparent distress. comfortable, Behavior is calm, cooperative. rv 21:00 Pain: Complains of pain in abdomen. Neuro: Level of Consciousness is awake, alert, rv obeys commands, Oriented to person, place, time, situation. Cardiovascular: GI: Bowel sounds present X 4 quads. Abd is soft and non tender X 4 quads. Derm: Skin is intact. 22:00 Reassessment: Patient appears in no apparent distress at this time. Patient and/or jb4 family updated on plan of care and expected duration. Pain level reassessed. Patient is alert, oriented x 3, equal unlabored respirations, skin warm/dry/pink. 23:00 Reassessment: Patient appears in no apparent distress at this time. Patient and/or jb4 family updated on plan of care and expected duration. Pain level reassessed. Patient is alert, oriented x 3, equal unlabored respirations, skin warm/dry/pink. Vital Signs: 19:28 BP 114 / 80; Pulse 101; Resp 20; Temp 97.4; Pulse Ox 98% on R/A; Weight 63.5 kg (R); aj1 Height 5 ft. 2 in. (157.48 cm) (R); Pain 5/10; 21:00 BP 118 / 66; Pulse 96; Resp 17; Pulse Ox 99% on R/A; rv 22:00 BP 117 / 63; Pulse 99; Resp 17; Pulse Ox 100% on R/A; rv 23:00 BP 116 / 66 (auto/); Pulse 97; Resp 18; Pulse Ox 99% on R/A; rv 04/25 00:00 BP 112 / 86; Pulse 94; Resp 16; Pulse Ox 99% on R/A; rv 04/24 19:28 Body Mass Index 25.61 (63.50 kg, 157.48 cm) aj1 ED Course: 04/24 19:11 Patient arrived in ED. cf2 19:27 Triage completed. aj1 19:28 Arm band placed on Patient placed in an exam room. aj1 19:38 Roszak, Deon, PA is PHCP. jr8 19:38 Bob Valdez MD is Attending Physician. jr8 20:00 Mayela Oneal, RN is Primary Nurse. aj1 20:35 Ernie Henriquez, RN is Primary Nurse. jb4 21:00 Patient has correct armband on for positive identification. Placed in gown. Bed in low rv position. Call light in reach. Pulse ox on. NIBP on. 21:42 Ultrasound completed. Patient tolerated well. sg3 21:42 US Transvaginal Ob In Process Unspecified. EDMS 22:02 Initial lab(s) drawn, by me, sent to lab. Inserted saline lock: 22 gauge in right lt1 antecubital area, using aseptic technique. 04/25 00:05 No provider procedures requiring assistance completed. IV discontinued, intact, rv bleeding controlled, No redness/swelling at site. Pressure dressing applied. Administered Medications: 04/24 20:01 Drug: Macrobid 100 mg Route: PO; aa1 04/25 00:02 Follow up: Response: No adverse reaction rv 04/24 23:59 Drug: Potassium Chloride 20 mEq Route: PO; rv 04/25 00:00 Follow up: Response: Medication administered at discharge. rv Outcome: 04/24 23:40 Discharge ordered by . jr8 04/25 00:05 Discharged to home ambulatory. rv Condition: good Discharge instructions given to patient, Instructed on discharge instructions, follow up and referral plans. medication usage, Demonstrated understanding of instructions, follow-up care, medications, Prescriptions given X 1. 00:06 Patient left the ED. rv Signatures: Dispatcher [employer] EDLA Mayela Oneal, RN RN aj1 Cindy Stacy RN RN aa1 Deon Rosado PA PA jr8 Ernie Henriquez, RN RN jb4 Lashaun Grimm sg3 Maximo Encarnacion RN RN Casandra [facility] Sushila Hobbs 2
--- NOTE | 2019-04-24 23:41 | EDPHYS ---
Physician Documentation [facility] Name: Milka Sanchez Age: 23 yrs Sex: Female : 1995 Arrival Date: 04/24/2019 Time: 19:11 Bed 18 Private MD: ED Physician Bob Valdez HPI: 04/24 21:12 This 23 yrs old Female presents to ER via Ambulatory with complaints of jr8 Abdominal Pain. 21:12 The patient presents with abdominal pain right lower quadrant. Onset: The jr8 symptoms/episode began/occurred gradually, today. The symptoms do not radiate. Associated signs and symptoms: none. The symptoms are described as crampy. Modifying factors: The symptoms are alleviated by nothing, the symptoms are aggravated by nothing. Severity of pain: At its worst the pain was mild in the emergency department the pain is unchanged. The patient has not experienced similar symptoms in the past. The patient has not recently seen a physician. stated that when she wipes has mild spotting . 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 - Social history:: Smoking status: Patient uses tobacco products, 3 cigarettes per day. - Ebola Screening: : Patient denies travel to an Ebola-affected area in the 21 days before illness onset. ROS: 21:12 Eyes: Negative for injury, pain, redness, and discharge, ENT: Negative for injury, jr8 pain, and discharge, Neck: Negative for injury, pain, and swelling, Cardiovascular: Negative for chest pain, palpitations, and edema, Respiratory: Negative for shortness of breath, cough, wheezing, and pleuritic chest pain, Back: Negative for injury and pain, MS/Extremity: Negative for injury and deformity, Skin: Negative for injury, rash, and discoloration, Neuro: Negative for headache, weakness, numbness, tingling, and seizure. 21:12 Abdomen/GI: Positive for abdominal cramps, Negative for nausea, vomiting, and diarrhea, abdominal distension, anorexia, dysphagia, hematemesis, black/tarry stool, rectal pain, rectal bleeding, bowel incontinence, flatulence. 21:12 : Positive for vaginal bleeding. Exam: 21:12 Eyes: Pupils equal round and reactive to light, extra-ocular motions intact. Lids and jr8 lashes normal. Conjunctiva and sclera are non-icteric and not injected. Cornea within normal limits. Periorbital areas with no swelling, redness, or edema. ENT: Nares patent. No nasal discharge, no septal abnormalities noted. Tympanic membranes are normal and external auditory canals are clear. Oropharynx with no redness, swelling, or masses, exudates, or evidence of obstruction, uvula midline. Mucous membranes moist. Neck: Trachea midline, no thyromegaly or masses palpated, and no cervical lymphadenopathy. Supple, full range of motion without nuchal rigidity, or vertebral point tenderness. No Meningismus. Cardiovascular: Regular rate and rhythm with a normal S1 and S2. No gallops, murmurs, or rubs. Normal PMI, no JVD. No pulse deficits. Respiratory: Lungs have equal breath sounds bilaterally, clear to auscultation and percussion. No rales, rhonchi or wheezes noted. No increased work of breathing, no retractions or nasal flaring. Back: No spinal tenderness. No costovertebral tenderness. Full range of motion. Skin: Warm, dry with normal turgor. Normal color with no rashes, no lesions, and no evidence of cellulitis. MS/ Extremity: Pulses equal, no cyanosis. Neurovascular intact. Full, normal range of motion. Neuro: Awake and alert, GCS 15, oriented to person, place, time, and situation. Cranial nerves II-XII grossly intact. Motor strength 5/5 in all extremities. Sensory grossly intact. Cerebellar exam normal. Normal gait. 21:12 Abdomen/GI: Inspection: abdomen appears normal, Bowel sounds: active, all quadrants, Palpation: soft, in all quadrants, mild abdominal tenderness, in the right lower pelvic region, mass, is not appreciated, rebound tenderness, is not appreciated, voluntary guarding, is not appreciated, involuntary guarding, is not appreciated, no appreciated organomegaly, Indicators: McBurney's point is not tender, Street's sign is negative, Rovsing's sign is negative, Liver: tenderness, is not appreciated. Vital Signs: 19:28 BP 114 / 80; Pulse 101; Resp 20; Temp 97.4; Pulse Ox 98% on R/A; Weight 63.5 kg (R); aj1 Height 5 ft. 2 in. (157.48 cm) (R); Pain 5/10; 21:00 BP 118 / 66; Pulse 96; Resp 17; Pulse Ox 99% on R/A; rv 22:00 BP 117 / 63; Pulse 99; Resp 17; Pulse Ox 100% on R/A; rv 23:00 BP 116 / 66 (auto/); Pulse 97; Resp 18; Pulse Ox 99% on R/A; rv 04/25 00:00 BP 112 / 86; Pulse 94; Resp 16; Pulse Ox 99% on R/A; rv 04/24 19:28 Body Mass Index 25.61 (63.50 kg, 157.48 cm) aj1 MDM: 04/24 19:39 Patient medically screened. jr8 23:38 Data reviewed: vital signs, nurses notes, lab test result(s), EKG, radiologic studies, jr8 ultrasound. Data interpreted: Pulse oximetry: on room air is 98 %. Interpretation: normal. Counseling: I had a detailed discussion with the patient and/or guardian regarding: the historical points, exam findings, and any diagnostic results supporting the discharge/admit diagnosis, lab results, radiology results, the need for outpatient follow up, an OB/Gyne specialist, to return to the emergency department if symptoms worsen or persist or if there are any questions or concerns that arise at home. 04/24 19:39 Order name: Basic Metabolic Panel; Complete Time: 22:35 jr8 04/24 19:39 Order name: CBC with Diff; Complete Time: 22:19 jr8 04/24 19:39 Order name: Creatinine for Radiology; Complete Time: 22:29 jr8 04/24 19:39 Order name: Hepatic Function; Complete Time: 22:35 jr8 04/24 19:39 Order name: Lipase; Complete Time: 22:35 jr8 04/24 19:39 Order name: Urine Microscopic Only; Complete Time: 20:56 jr8 04/24 19:58 Order name: Urine Culture EDMS 04/24 19:58 Order name: Urine Dipstick--Ancillary (enter results); Complete Time: 20:56 cm6 04/24 19:58 Order name: Urine --Ancillary (enter results); Complete Time: 20:56 6 04/24 20:58 Order name: HCG-Quantitative; Complete Time: 22:48 [facility] 04/24 20:58 Order name: Rh Type [facility] 04/24 20:58 Order name: US Transvaginal Ob [facility] 04/24 23:09 Order name: Rh Typing; Complete Time: 23:36 [facility] 04/24 19:35 Order name: Urine Dipstick-Ancillary (obtain specimen); Complete Time: 19:47 [facility] 04/24 19:35 Order name: Urine Test (obtain specimen); Complete Time: 19:47 [facility] 04/24 19:39 Order name: IV Saline Lock; Complete Time: 22:03 [facility] 04/24 19:39 Order name: Labs collected and sent; Complete Time: 22:03 [facility] Administered Medications: 20:01 Drug: Macrobid 100 mg Route: PO; [facility] 04/25 00:02 Follow up: Response: No adverse reaction 04/24 23:59 Drug: Potassium Chloride 20 mEq Route: PO; 04/25 00:00 Follow up: Response: Medication administered at discharge. rv Disposition: 07:57 Co-signature as Attending Physician, Bob Valdez MD I agree with the assessment and [facility] plan of care. Disposition: 04/24/19 23:40 Discharged to Home. Impression: Threatened , Urinary tract infection, site not specified. - Condition is Stable. - Discharge Instructions: Threatened Miscarriage, Urinary Tract Infection, Adult, Vaginal Bleeding During , First Trimester. - Prescriptions for Macrobid 100 mg Oral Capsule - take 1 capsule by ORAL route every 12 hours for 7 days; 14 capsule. - Medication Reconciliation Form, Thank You Letter, Antibiotic Education, Prescription Opioid Use, Work release form form. - Follow up: Private Physician; When: 2 - 3 days; Reason: Recheck today's complaints, Continuance of care, Re-evaluation by your physician. - Problem is new. - Symptoms have improved. Signatures: Dispatcher [employer] EDMayela Alamo RN RN aj1 Cindy Stacy RN RN aa1 Bob Valdez MD MD cha Roszak, Josh, PA PA jr8 Shashank, Maximo, RN RN rv Corrections: (The following items were deleted from the chart) 04/24 23:40 23:40 04/24/2019 23:40 Discharged to Home. Impression: Threatened . Condition jr8 is Stable. Forms are Medication Reconciliation Form, Thank You Letter, Antibiotic Education, Prescription Opioid Use. Follow up: Private Physician; When: 2 - 3 days; Reason: Recheck today's complaints, Continuance of care, Re-evaluation by your physician. Problem is new. Symptoms have improved. jr8 04/25 00:06 04/24 23:40 04/24/2019 23:40 Discharged to Home. Impression: Threatened ; rv Urinary tract infection, site not specified. Condition is Stable. Discharge Instructions: Threatened Miscarriage, Vaginal Bleeding During , First Trimester. Forms are Medication Reconciliation Form, Thank You Letter, Antibiotic Education, Prescription Opioid Use. Follow up: Private Physician; When: 2 - 3 days; Reason: Recheck today's complaints, Continuance of care, Re-evaluation by your physician. Problem is new. Symptoms have improved. jr8
[2019-04-24] MEDS ORDERED: POTASSIUM CL SA 10 MEQ TAB PO ONE (23:55)
[2019-04-25 02:44] VITALS: TEMP 97.4
[2019-04-25 02:48] VITALS: O2SAT 99
[2019-04-25 02:49] VITALS: BP 112/86
--- NOTE | 2019-04-25 09:31 | RAD REPORT ---
EXAM DESCRIPTION: US - Transvaginal OB - 04/24/2019 9:42 pm CLINICAL HISTORY: Abd pain;Vaginal bleeding COMPARISON: OB Complete dated 11/27/2016 FINDINGS: A tiny cystic structure in the fundal endometrium is seen likely a small gestational sac. The shape of the sac is within normal limits for gestational age. The sac is quite small and no juve onic components yet identified. The maternal adnexa are within normal limits. Functional bilateral ovarian cyst seen. Normal Doppler blood flow was demonstrated to both ovaries. IMPRESSION: Findings compatible with a very early IUP are present. Recommend correlation with HCG le vels and follow-up pelvic ultrasound in 10-12 days.
== END 2019-04-25 00:06 | disposition home or self-care (01) ==
LOC: ER 19:07
DX: O20.0 Threatened abortion (principal); O23.40 Unspecified infection of urinary tract in pregnancy, unspecified trimester; O99.330 Smoking (tobacco) complicating pregnancy, unspecified trimester; Z3A.00 Weeks of gestation of pregnancy not specified
CPT/HCPCS: 36415; 76817; 80048; 80076; 81003; 81015; 81025; 83690; 84702; 85025; 86901; 87086; 87088; 99284

== ENCOUNTER 2019-11-09 00:11 | Emergency (ER) | payer OTHER ==
[2019-11-09] MEDS ORDERED: NA CHLORIDE 0.9% 1,000 ML ONE (00:41)
[2019-11-09 01:22] LABS: Absolute Lymphocytes (CBC) 1.7 K/uL (0.7-4.9); Basophils % 0.3 % (0-1.3); Hematocrit 36.1 % (36.0-45.0); Lymphocytes % 23.7 % (15.3-44.8); MPV 10.4 fL (7.6-11.3); RBC Red Blood Cell Count 3.99 M/uL (3.86-4.86)
[2019-11-09 01:24] LABS: Urine Bacteria 20-50 /HPF (<20); Urine Culture Reflex Order REFLEXED; Urine RBC NONE SEEN /HPF (NONE SEEN)
[2019-11-09 01:25] LABS: Urine Blood TRACE (NEG); Urine Glucose NEGATIVE (NEG); Urine Protein NEGATIVE (NEG)
[2019-11-09 01:28] LABS: BUN Blood Urea Nitrogen 2 mg/dL (7-18); Bicarbonate 22 mmol/L (21-32); Glucose Level 89 mg/dL (74-106); Potassium 3.2 mmol/L (3.5-5.1); Sodium Level 140 mmol/L (136-145)
[2019-11-09] MEDS ORDERED: POTASSIUM CL SA 10 MEQ TAB PO ONE (01:48)
[2019-11-09] MEDS ORDERED: CEFTRIAXONE/SWI 1gm 1 GM/10 ML SYR ONE (01:48)
--- NOTE | 2019-11-09 01:48 | EDPHYS ---
Physician Documentation [facility] Name: Milka Sanchez Age: 24 yrs Sex: Female : 1995 Arrival Date: 11/09/2019 Time: 00:15 Bed 7 Private MD: ED Physician Jose Antonio Perrin HPI: 11/08 00:34 This 24 yrs old Female presents to ER via Unassigned with complaints of jr8 Doesn't Feel good, Nausea/Vomiting, Headache. 00:34 Patient stated that her friend that she has been around started to present with COVID jr8 symptoms a few days ago. Stated that she was tested but does not know results as of yet. Stated that she now has been having headaches, fatigue, n/v/d, loss of taste and smell. Denies cough or shortness of breath. Currently 34 weeks but without complications . Severity of symptoms: At their worst the symptoms were moderate in the emergency department the symptoms are unchanged. The patient has not experienced similar symptoms in the past. The patient has not recently seen a physician. VP SITE: 01:01 LMP N/A - currently jd3 Historical: - Allergies: 00:45 Hydrocodone-Acetaminophen; jd3 00:45 PENICILLINS; jd3 - Home Meds: 00:45 Vitamin Oral [Active]; jd3 - PMHx: 00:45 None; jd3 - PSHx: 00:45 Appendectomy; jd3 - Immunization history:: Adult Immunizations up to date. - Social history:: Smoking status: Patient denies any tobacco usage or history of. ROS: 00:34 Eyes: Negative for injury, pain, redness, and discharge, Neck: Negative for injury, jr8 pain, and swelling, Cardiovascular: Negative for chest pain, palpitations, and edema, Respiratory: Negative for shortness of breath, cough, wheezing, and pleuritic chest pain, Back: Negative for injury and pain, MS/Extremity: Negative for injury and deformity, Skin: Negative for injury, rash, and discoloration. 00:34 Constitutional: Positive for fatigue, malaise. 00:34 ENT: Positive for sore throat. 00:34 Abdomen/GI: Positive for nausea, vomiting, and diarrhea, Negative for abdominal pain, constipation, abdominal cramps, abdominal distension. 00:34 Neuro: Positive for headache. Exam: 00:34 Eyes: Pupils equal round and reactive to light, extra-ocular motions intact. Lids and jr8 lashes normal. Conjunctiva and sclera are non-icteric and not injected. Cornea within normal limits. Periorbital areas with no swelling, redness, or edema. ENT: Nares patent. No nasal discharge, no septal abnormalities noted. Tympanic membranes are normal and external auditory canals are clear. Oropharynx with no redness, swelling, or masses, exudates, or evidence of obstruction, uvula midline. Mucous membranes moist. Neck: Trachea midline, no thyromegaly or masses palpated, and no cervical lymphadenopathy. Supple, full range of motion without nuchal rigidity, or vertebral point tenderness. No Meningismus. Cardiovascular: Regular rate and rhythm with a normal S1 and S2. No gallops, murmurs, or rubs. Normal PMI, no JVD. No pulse deficits. Respiratory: Lungs have equal breath sounds bilaterally, clear to auscultation and percussion. No rales, rhonchi or wheezes noted. No increased work of breathing, no retractions or nasal flaring. Abdomen/GI: Soft, non-tender, with normal bowel sounds. No distension or tympany. No guarding or rebound. No evidence of tenderness throughout. Gravid in appearance Back: No spinal tenderness. No costovertebral tenderness. Full range of motion. Skin: Warm, dry with normal turgor. Normal color with no rashes, no lesions, and no evidence of cellulitis. MS/ Extremity: Pulses equal, no cyanosis. Neurovascular intact. Full, normal range of motion. Neuro: Awake and alert, GCS 15, oriented to person, place, time, and situation. Cranial nerves II-XII grossly intact. Motor strength 5/5 in all extremities. Sensory grossly intact. Cerebellar exam normal. Normal gait. Vital Signs: 00:45 BP 102 / 71; Pulse 80; Resp 16 S; Temp 97.9(O); Pulse Ox 100% on R/A; Weight 78.93 kg jd3 (R); Height 5 ft. 2 in. (157.48 cm) (R); Pain 7/10; 02:10 BP 92 / 66; Pulse 79; Resp 15 S; Pulse Ox 100% on R/A; jd3 00:45 Body Mass Index 31.83 (78.93 kg, 157.48 cm) jd3 MDM: 00:19 Patient medically screened. jr8 01:46 Data reviewed: vital signs, nurses notes, lab test result(s), and as a result, I will jr8 discharge patient. Data interpreted: Pulse oximetry: on room air is 100 %. Interpretation: normal. Counseling: I had a detailed discussion with the patient and/or guardian regarding: the historical points, exam findings, and any diagnostic results supporting the discharge/admit diagnosis, lab results, the need for outpatient follow up, an OB/Gyne specialist, to return to the emergency department if symptoms worsen or persist or if there are any questions or concerns that arise at home. ED course: Patient feeling better. Explained to her that we suspect COVID based on exam and symptoms. Needs to isolate and call OB and tell them since she is near term. Will put on Abx for UTI. Otherwise to treat symptomatically with OTC medicines that are safe. If worse to come back for reevaluation . 11/08 00:29 Order name: CBC with Diff [facility] 11/08 00:29 Order name: Basic Metabolic Panel; Complete Time: 01:32 [facility] 11/08 00:29 Order name: Strep; Complete Time: 01:46 [facility] 11/08 00:29 Order name: COVID-19 [facility] 11/08 00:29 Order name: Urine Microscopic Only; Complete Time: 01:32 [facility] 11/08 00:31 Order name: CBC with Automated Diff; Complete Time: 01:32 [facility] 11/08 00:48 Order name: Urine Dipstick--Ancillary (enter results) [facility] 11/08 00:48 Order name: Urine --Ancillary (enter results); Complete Time: 01:32 [facility] 11/08 00:49 Order name: Urine Dipstick-Ancillary; Complete Time: 01:32 [facility] 11/08 01:26 Order name: Urine Culture [facility] 11/08 01:46 Order name: Throat Culture [facility] 11/08 00:29 Order name: IV; Complete Time: 00:51 [facility] 11/08 00:29 Order name: Urine Dipstick-Ancillary (obtain specimen); Complete Time: 00:46 [facility] Administered Medications: 01:06 Drug: NS 0.9% 1000 ml Route: IV; Rate: 1000 ml; Site: right antecubital; jd3 02:12 Follow up: Response: No adverse reaction; IV Status: Completed infusion; IV Intake: jd3 1000ml 01:54 Drug: Rocephin 1 grams Route: IV; Rate: calculated rate; Site: right antecubital; jd3 02:00 Follow up: Response: No adverse reaction; IV Status: Completed infusion jd3 01:55 Drug: Potassium Chloride 40 mEq Route: PO; jd3 02:12 Follow up: Response: No adverse reaction jd3 Disposition: 02:40 Co-signature as Attending Physician, Jose Antonio Perrin MD. gregory Disposition: 11/09/19 01:48 Discharged to Home. Impression: Viral infection, unspecified, Urinary tract infection, site not specified. - Condition is Stable. - Discharge Instructions: Urinary Tract Infection, Adult, [id number], COVID-19. - Prescriptions for Zofran 4 mg Oral Tablet - take 1 tablet by ORAL route every 12 hours As needed; 20 tablet. Macrobid 100 mg Oral Capsule - take 1 capsule by ORAL route every 12 hours for 7 days; 14 capsule. - Medication Reconciliation Form, Thank You Letter, Antibiotic Education, Prescription Opioid Use form. - Follow up: Private Physician; When: Tomorrow; Reason: Recheck today's complaints, Continuance of care, Re-evaluation by your physician. - Problem is new. - Symptoms have improved. Signatures: Dispatcher [employer] Jose Antonio Worrell MD MD pkl Deon Rosado PA PA jr8 Bentley Pérez RN RN jd3 Corrections: (The following items were deleted from the chart) 02:13 01:48 11/09/2019 01:48 Discharged to Home. Impression: Viral infection, unspecified; jd3 Urinary tract infection, site not specified. Condition is Stable. Forms are Medication Reconciliation Form, Thank You Letter, Antibiotic Education, Prescription Opioid Use. Follow up: Private Physician; When: Tomorrow; Reason: Recheck today's complaints, Continuance of care, Re-evaluation by your physician. Problem is new. Symptoms have improved. jr8
--- NOTE | 2019-11-09 01:48 | ER ---
Nurse's Notes [facility] Name: Milka Sanchez Age: 24 yrs Sex: Female : 1995 Arrival Date: 11/09/2019 Time: 00:15 Bed 7 Private MD: Diagnosis: Viral infection, unspecified;Urinary tract infection, site not specified Presentation: 11/08 00:40 Chief complaint: Patient states: "I have not been feeling good for 3 days now. I have jd3 been feeling headaches, body aches, nausea, diarrhea, and loss of taste. I had a friend come over that was having symptoms that got tested for COVID-19, but she doesn't know the results yet.". Coronavirus screen: Patient reports a cough. Patient denies shortness of breath or difficulty breathing. Patient denies measured and/or subjective temperature greater than 100.4F prior to today's visit. Patient denies travel on a cruise ship or to a country the [facility] currently lists as an affected area. Patient reports contact with known and/or suspected case of COVID-19. charge nurse notified. Ebola Screen: Patient negative for fever greater than or equal to 101.5 degrees Fahrenheit, and additional compatible Ebola Virus Disease symptoms. Initial Sepsis Screen: Does the patient meet any 2 criteria? No. Patient's initial sepsis screen is negative. Does the patient have a suspected source of infection? No. Patient's initial sepsis screen is negative. Risk Assessment: Do you want to hurt yourself or someone else? Patient reports no desire to harm self or others. Onset of symptoms was November 06, 2019. 00:40 Method Of Arrival: Ambulatory jd3 00:40 Acuity: QUAN 3 jd3 01:02 Note pt is currently 34 weeks . 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 - Social history:: Smoking status: Patient denies any tobacco usage or history of. Screenin:11 Abuse screen: Denies threats or abuse. Nutritional screening: No deficits noted. jd3 Tuberculosis screening: No symptoms or risk factors identified. Fall Risk Ambulatory Aid- None/Bed Rest/Nurse Assist (0 pts). Gait- Normal/Bed Rest/Wheelchair (0 pts) Mental Status- Oriented to own ability (0 pts). Total Marsh Fall Scale indicates No Risk (0-24 pts). Assessment: 00:45 General: Appears in no apparent distress. uncomfortable, Behavior is calm, cooperative, jd3 appropriate for age. Pain: Complains of pain in head Quality of pain is described as aching. Neuro: Level of Consciousness is awake, alert, obeys commands, Oriented to person, place, time, situation. Cardiovascular: Denies chest pain, Capillary refill < 3 seconds Patient's skin is warm and dry. Respiratory: Reports cough that is persistent Airway is patent Respiratory effort is even, unlabored, Respiratory pattern is regular, symmetrical, Denies shortness of breath. GI: Abdomen is non-distended, Abd is soft and non tender X 4 quads. Reports diarrhea, nausea. : No signs and/or symptoms were reported regarding the genitourinary system. EENT: Reports loss of taste . Derm: Skin is intact, Skin is dry, Skin is normal, Skin temperature is warm. Musculoskeletal: Circulation, motion, and sensation intact. Range of motion: intact in all extremities. 01:45 Reassessment: Patient appears in no apparent distress at this time. No changes from jd3 previously documented assessment. Patient and/or family updated on plan of care and expected duration. Pain level reassessed. Patient is alert, oriented x 3, equal unlabored respirations, skin warm/dry/pink. 02:10 Reassessment: Patient appears in no apparent distress at this time. Patient and/or [facility] family updated on plan of care and expected duration. Pain level reassessed. Patient is alert, oriented x 3, equal unlabored respirations, skin warm/dry/pink. Patient states feeling better. Vital Signs: 00:45 BP 102 / 71; Pulse 80; Resp 16 S; Temp 97.9(O); Pulse Ox 100% on R/A; Weight 78.93 kg jd3 (R); Height 5 ft. 2 in. (157.48 cm) (R); Pain 7/10; 02:10 BP 92 / 66; Pulse 79; Resp 15 S; Pulse Ox 100% on R/A; jd3 00:45 Body Mass Index 31.83 (78.93 kg, 157.48 cm) jd3 ED Course: 00:15 Patient arrived in ED. bp1 00:19 Deon Rosado PA is PHCP. jr8 00:19 Jose Antonio Perrin MD is Attending Physician. jr8 00:45 Inserted saline lock: 20 gauge in right antecubital area, using aseptic technique. jd3 Blood collected. 00:45 Initial lab(s) drawn, by de, sent to lab. Urine collected: clean catch specimen, clear, jd3 Strep swab sent to lab. COVID-19 swab sent to lab. 00:45 Arm band placed on. jd3 00:53 Bentley Pérez, CHETNA is Primary Nurse. jd3 01:01 Triage completed. jd3 01:11 Patient has correct armband on for positive identification. Bed in low position. Call jd3 light in reach. Side rails up X 1. 02:11 No provider procedures requiring assistance completed. IV discontinued, intact, jd3 bleeding controlled, No redness/swelling at site. Pressure dressing applied. Administered Medications: 01:06 Drug: NS 0.9% 1000 ml Route: IV; Rate: 1000 ml; Site: right antecubital; jd3 02:12 Follow up: Response: No adverse reaction; IV Status: Completed infusion; IV Intake: jd3 1000ml 01:54 Drug: Rocephin 1 grams Route: IV; Rate: calculated rate; Site: right antecubital; jd3 02:00 Follow up: Response: No adverse reaction; IV Status: Completed infusion jd3 01:55 Drug: Potassium Chloride 40 mEq Route: PO; jd3 02:12 Follow up: Response: No adverse reaction jd3 Intake: 02:12 IV: 1000ml; Total: 1000ml. jd3 Outcome: 01:48 Discharge ordered by . jr8 02:11 Discharged to home ambulatory, with family. jd3 02:11 Condition: stable 02:11 Discharge instructions given to patient, Instructed on discharge instructions, follow up and referral plans. medication usage, Demonstrated understanding of instructions, follow-up care, medications, Prescriptions given X 2. 02:13 Patient left the ED. jd3 Addendum: 11/10/2019 11:25 Addendum: Other PUI#[id number]. h b 11/12/2019 16:14 Addendum: COVID-19 Result: Positive result giiven to ED physician to notify pt. s s Physician was able to contact pt and pt was notified of positive COVID-19 swab result. Physician answered pt questions. Other: notified by Deisy Daly NP. Signatures: Teodora Field RN RN Deon Rosado PA PA jr8 Linda Ruiz RN RN Bentley Pérez RN RN jd3 Virgie Contreras bp1 Corrections: (The following items were deleted from the chart) 11/08 01:08 01:01 BP 102 / 71; Pulse 80bpm; Resp 16bpm; Spontaneous; Pulse Ox 100% RA; Temp 97.9F jd3 Oral; 78.93 kg Reported; Height 5 ft. 2 in. Reported; BMI: 31.8; Pain 7/10; jd3
[2019-11-09 02:41] VITALS: TEMP 97.9; O2SAT 100
[2019-11-09 02:46] VITALS: BP 92/66
== END 2019-11-09 02:13 | disposition home or self-care (01) ==
LOC: ER 00:11
DX: O98.513 Other viral diseases complicating pregnancy, third trimester (principal); U07.1 COVID-19; Z3A.34 34 weeks gestation of pregnancy; Z88.0 Allergy status to penicillin; Z88.5 Allergy status to narcotic agent
CPT/HCPCS: 96361; 87070; 87088; 85025; 87086; 80048; 36415; 81025; 87081; 96374; 99284; U0001; J0696; J7030; 81003; 81015

== ENCOUNTER 2019-11-23 16:20 | Emergency (ER) | payer OTHER ==
--- NOTE | 2019-11-23 16:47 | EDPHYS ---
Physician Documentation [facility] Name: Milka Sanchez Age: 24 yrs Sex: Female : 1995 Arrival Date: 11/23/2019 Time: 16:25 Bed Waiting Private MD: ED Physician Onofre Ambrosio HPI: 11/22 17:00 This 24 yrs old Female presents to ER via Ambulatory with complaints of COVID kb retest. 17:[address] Chauhan told her she needed to come be retested for COVID 14 days after her kb positive test. States she asked him for an order to get tested and was told to come back to the ER for the retest. Pt states she has no symptoms. The patient has not experienced similar symptoms in the past. The patient has been recently seen at the [facility] Emergency Department, a couple of weeks ago. 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 - Social history:: Smoking status: Patient denies any tobacco usage or history of. ROS: 16:58 Constitutional: Negative for fever, chills, and weight loss, ENT: Negative for injury, kb pain, and discharge, Neck: Negative for injury, pain, and swelling, Cardiovascular: Negative for chest pain, palpitations, and edema, Respiratory: Negative for shortness of breath, cough, wheezing, and pleuritic chest pain, Abdomen/GI: Negative for abdominal pain, nausea, vomiting, diarrhea, and constipation, MS/Extremity: Negative for injury and deformity, Skin: Negative for injury, rash, and discoloration, Neuro: Negative for headache, weakness, numbness, tingling, and seizure. Exam: 16:59 Constitutional: This is a well developed, well nourished patient who is awake, alert, kb and in no acute distress. Head/Face: Normocephalic, atraumatic. Chest/axilla: Normal chest wall appearance and motion. Nontender with no deformity. No lesions are appreciated. Cardiovascular: Regular rate and rhythm with a normal S1 and S2. No gallops, murmurs, or rubs. Normal PMI, no JVD. No pulse deficits. Respiratory: Lungs have equal breath sounds bilaterally, clear to auscultation and percussion. No rales, rhonchi or wheezes noted. No increased work of breathing, no retractions or nasal flaring. Abdomen/GI: Soft, non-tender, with normal bowel sounds. No distension or tympany. No guarding or rebound. No evidence of tenderness throughout. Skin: Warm, dry with normal turgor. Normal color with no rashes, no lesions, and no evidence of cellulitis. MS/ Extremity: Pulses equal, no cyanosis. Neurovascular intact. Full, normal range of motion. Neuro: Awake and alert, GCS 15, oriented to person, place, time, and situation. Cranial nerves II-XII grossly intact. Motor strength 5/5 in all extremities. Sensory grossly intact. Cerebellar exam normal. Normal gait. Vital Signs: 16:35 BP 114 / 54; Pulse 86; Resp 17 S; Temp 98.4(TE); Pulse Ox 99% on R/A; Weight 79.38 kg ca1 (R); Height 5 ft. 2 in. (157.48 cm) (R); 16:35 Body Mass Index 32.01 (79.38 kg, 157.48 cm) ca1 MDM: 16:40 Patient medically screened. kb 16:45 Data reviewed: vital signs, nurses notes. Data interpreted: Pulse oximetry: on room air kb is 99 %. Interpretation: normal. Counseling: I had a detailed discussion with the patient and/or guardian regarding: the historical points, exam findings, and any diagnostic results supporting the discharge/admit diagnosis, the need for outpatient follow up, a family practitioner, to return to the emergency department if symptoms worsen or persist or if there are any questions or concerns that arise at home. 17:03 ED course: PT educated that we do not retest for COVID to check for resolution. Pt made jonas an appt with [facility] in [place] for tomorrow at 1100 for retest while waiting. . Administered Medications: No medications were administered Disposition: 16:45 Encounter for repeat COVID-19 test - asymptomatic. kb 17:52 Co-signature as Attending Physician, Onofre Ambrosio MD. rn Disposition: 11/23/19 16:46 Discharged to Home. Impression: Encounter for screening, unspecified. - Condition is Stable. - Medication Reconciliation Form, Thank You Letter, Antibiotic Education, Prescription Opioid Use form. - Follow up: Emergency Department; When: As needed; Reason: Worsening of condition. Follow up: Private Physician; When: 2 - 3 days; Reason: Recheck today's complaints, Continuance of care, Re-evaluation by your physician. Signatures: Deisy Daly, LENA-C LENA-Onofre Horton MD MD rn Acob, Abigail RN RN ca1 Corrections: (The following items were deleted from the chart) 16:52 16:46 11/23/2019 16:46 Discharged to Home. Impression: Encounter for screening, ca1 unspecified. Condition is Stable. Forms are Medication Reconciliation Form, Thank You Letter, Antibiotic Education, Prescription Opioid Use. Follow up: Emergency Department; When: As needed; Reason: Worsening of condition. Follow up: Private Physician; When: 2 - 3 days; Reason: Recheck today's complaints, Continuance of care, Re-evaluation by your physician. kb
--- NOTE | 2019-11-23 16:47 | ER ---
Nurse's Notes [facility] Name: Milka Sanchez Age: 24 yrs Sex: Female : 1995 Arrival Date: 11/23/2019 Time: 16:25 Bed Waiting Private MD: Diagnosis: Encounter for screening, unspecified Presentation: 11/22 16:35 Chief complaint: Patient states: Retest for Covid-19. Tested positive for Covid-19 on ca1 the 08 of November. Coronavirus screen: Patient denies a cough. Patient denies shortness of breath or difficulty breathing. Patient denies measured and/or subjective temperature greater than 100.4F prior to today's visit. Patient denies travel on a cruise ship or to a country the [facility] currently lists as an affected area. Patient denies contact with known and/or suspected case of COVID-19. Proceed with normal triage. Ebola Screen: Patient negative for fever greater than or equal to 101.5 degrees Fahrenheit, and additional compatible Ebola Virus Disease symptoms Patient denies exposure to infectious person. Patient denies travel to an Ebola-affected area in the 21 days before illness onset. No symptoms or risks identified at this time. Initial Sepsis Screen: Does the patient meet any 2 criteria? No. Patient's initial sepsis screen is negative. Does the patient have a suspected source of infection? No. Patient's initial sepsis screen is negative. Risk Assessment: Do you want to hurt yourself or someone else? Patient reports no desire to harm self or others. Onset of symptoms was November 23, 2019. 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 - Social history:: Smoking status: Patient denies any tobacco usage or history of. Screenin:40 Abuse screen: Denies threats or abuse. Denies injuries from another. Nutritional ca1 screening: No deficits noted. Tuberculosis screening: No symptoms or risk factors identified. Fall Risk None identified. Assessment: 16:40 General: Appears in no apparent distress. comfortable, Behavior is calm, cooperative, ca1 appropriate for age. General: Denies fever. Pain: Denies pain. Neuro: Level of Consciousness is awake, alert, obeys commands, Oriented to person, place, time, situation. Respiratory: Denies cough, shortness of breath. Derm: Skin is intact, is healthy with good turgor, Skin is pink, warm \T\ dry. Musculoskeletal: Circulation, motion, and sensation intact. Capillary refill < 3 seconds. Vital Signs: 16:35 BP 114 / 54; Pulse 86; Resp 17 S; Temp 98.4(TE); Pulse Ox 99% on R/A; Weight 79.38 kg ca1 (R); Height 5 ft. 2 in. (157.48 cm) (R); 16:35 Body Mass Index 32.01 (79.38 kg, 157.48 cm) ca1 ED Course: 16:25 Patient arrived in ED. mr 16:32 Deisy Daly FNP-C is [facility]. kb 16:32 Onofre Ambrosio MD is Attending Physician. kb 16:38 Triage completed. ca1 16:39 Arm band placed on right wrist. ca1 16:40 Patient has correct armband on for positive identification. ca1 16:40 No provider procedures requiring assistance completed. Patient did not have IV access ca1 during this emergency room visit. Administered Medications: No medications were administered Outcome: 16:44 Medical screen evaluation completed per provider. ca1 16:46 Discharge ordered by MD. kb 16:52 Condition: stable ca1 16:52 Discharge instructions given to patient, Instructed on follow up and referral plans. Demonstrated understanding of follow-up care. 16:52 Patient left the ED. ca1 Signatures: Deisy Daly FNP-C FNP-Ckb Theresa Winchester mr Abigail Jama, RN RN ca1
[2019-11-24 06:32] VITALS: BP 114/54; TEMP 98.4; O2SAT 99
== END 2019-11-23 16:52 | disposition home or self-care (01) ==
LOC: ER 16:20
DX: Z00.00 Encounter for general adult medical examination without abnormal findings (principal)
CPT/HCPCS: 99281

== ENCOUNTER 2019-12-21 03:51 | Inpatient (IN) | payer OTHER ==
[2019-12-21] MEDS ORDERED: MIDAZOLAM HCL 2 MG/2 ML INJ IV PRN (04:12)
[2019-12-21] MEDS ORDERED: BUTORPHANOL 1 MG/ML INJ IV PRN (04:12)
[2019-12-21] MEDS ORDERED: MEPERIDINE HCL 25 MG/ML SYR IV PRN (04:12)
[2019-12-21] MEDS ORDERED: Ringers Lactate 1,000 ML IV PRN (04:12)
[2019-12-21] MEDS ORDERED: PROMETHAZINE INJ 25 MG/ML AMP IM PRN (04:12)
[2019-12-21] MEDS ORDERED: METHYLERGONOVINE 0.2MG/ML AMP IM PRN (04:12)
[2019-12-21] MEDS ORDERED: CARBOPROST TROME 250 MCG/ML IM PRN (04:12)
[2019-12-21] MEDS ORDERED: FENTANYL CITR 100 MCG/2 ML IV ONE (04:19)
[2019-12-21] MEDS ORDERED: ROPIVACAINE HCL 100 ML IV PRN (04:19)
[2019-12-21] MEDS ORDERED: ROPIVACAINE HCL 0.2% 20ML AMP IV ONE (04:24)
[2019-12-21 04:55] LABS: Basophils % 0.2 % (0-1.3); Hematocrit 31.4 % (36.0-45.0); Lymphocytes % 19.6 % (15.3-44.8); MPV 11.1 fL (7.6-11.3); RBC Red Blood Cell Count 3.55 M/uL (3.86-4.86); Urine Appearance CLOUDY; Urine Bilirubin NEGATIVE (NEG); Urine Blood NEGATIVE (NEG); Urine Color YELLOW; Urine Glucose NEGATIVE (NEG); Urine Protein NEGATIVE (NEG); Urine Urobilinogen 0.2 mg/dL (0.2-1.0)
[2019-12-21 05:00] VITALS: BMI 32.0
[2019-12-21] MEDS ORDERED: Ringers Lactate 1,000 ML IV SCH (05:00)
[2019-12-21] MEDS ORDERED: OXYTOCIN/LR 20 UNIT/1,000 ML BAG IV SCH ×2 (05:00→14:00)
[2019-12-21 05:06] LABS: Urine Microscopic Reflex ORDER UMIC
[2019-12-21 05:31] LABS: Urine Bacteria 20-50 /HPF (<20); Urine Culture Reflex Order REFLEXED; Urine RBC NONE SEEN /HPF (NONE SEEN); Urine Urothelial Cells <5 /HPF (NONE SEEN)
[2019-12-21] MEDS ORDERED: Ringers Lactate 2,000 ML IV ONE (07:35)
--- NOTE | 2019-12-21 07:52 | PREOPHP ---
Date of Admission: 12/21/2019 Milka Sanchez is a 24-year-old 3, para 2, at 39 weeks and 5 days, 3 cm, 50% effaced, vert ex well applied, -1 station, rupture membranes, clear fluid. Berenice regularly. She is Rh posit nusrat. Immune to rubella. Negative beta strep screen. Negative COVID status. Full admission talk gi [facility]. The patient will be requesting epidural, but at this point she is not really uncomfortable. An ticipate delivery sometime later today and full labor talk given. The patient has been anemic during her and continues to be anemic. GUILLERMINA/ROBYN Voice ID: [id number]
[2019-12-21] MEDS ORDERED: LIDOCAINE 1% MPF 30 ML VIAL ONE (09:46)
--- NOTE | 2019-12-21 11:58 | PN ---
The patient has had her epidural. She is quite happy at this point, in fact, she is probably a littl e bit too numb. The patient is now 5.5 to 6. Baby is straight, occiput posterior, about 0 station. We will start doing pelvic rocks. I think that if the baby rotates that we will have the baby fairl y quickly. Everything else looks normal at this point. Expect more rapid progress. GUILLERMINA/ROBYN Voice ID: [id number] Report ID: [id number]
[2019-12-21] MEDS ORDERED: Oxycodone HCl/Acetaminophen 1 TAB TAB PO PRN ×2 (13:27)
[2019-12-21] MEDS ORDERED: DIPHENHYDRAMINE 25 MG TAB/CAP PO PRN (13:27)
[2019-12-21] MEDS ORDERED: DOCUSATE NA/SENNA CONC 1 TAB PO PRN (13:27)
[2019-12-21] MEDS ORDERED: ACETAMINOPHEN 500 MG TAB PO PRN (13:27)
[2019-12-21] MEDS ORDERED: BISACODYL 10 MG RECTAL SUPP RC PRN (13:27)
[2019-12-21] MEDS: IBUPROFEN 600 MG TAB PO PRN ×2 (15:46→23:50)
[2019-12-21] MEDS ORDERED: Ringers Lactate 1,000 ML IV ONE (18:17)
--- NOTE | 2019-12-21 22:34 | OP ---
Surgeon: MD Moiz Strongmaryam JoseSanchez, a 24-year-old 3, para 2, 39 weeks 5 days, 3 cm on admission. Rupture of m embranes, clear fluid. The patient requested epidural anesthesia which gave excellent effect during remainder of Labor and delivery. After achieving 5 cm, went rapidly to complete. Second stage consi sted of one series of pushing, about 4 pushes, spontaneous vaginal delivery of an estimated 7-pound m marco , Apgars 9 and 9. Nuchal cord x1. Small first-degree laceration, repaired with 2-0 chromi c. Schultze delivery of the placenta, which was inspected and noted to be intact and normal. Mild u terine hypotonus, 0.2 mg of Methergine IM as well as IV drip Pitocin and massage. Estimated blood lo ss 350 to 400 cc. Rh positive, immune to Rubella. Negative beta strep screen. Tolerated all proced ures well. Final Diagnoses: Term intrauterine , 39 weeks 5 days. Vaginal delivery. Epidural anesthes ia. Mild uterine hypotonus. Nuchal cord x1. ODESSAC/MODL Voice ID: [id number] Report ID: [id number]
[2019-12-22] MEDS: IBUPROFEN 600 MG TAB PO PRN (08:15)
--- NOTE | 2019-12-22 09:56 | DS ---
A 24-year-old 3, para 2, at 39 weeks and 5 days. Delivered a 7 pounds 1 ounce male , A pgars 9 and 9. Nuchal cord x1. Epidural anesthesia. Small first-degree laceration repaired with 2- 0 chromic. Schultze delivery of the placenta, which was inspected and noted to be intact and normal. Very mild uterine hypotonus, 0.2 mg of Methergine IM, IV drip Pitocin, massage. Estimated blood lo ss 350-400 cc. Rh positive, immune to rubella. Negative beta strep screen. ; afebrile, a mbulating, and voiding. Lochia is normal. The patient is bottle-feeding, is requesting narcotics fo r analgesia on dismissal, given 20 tramadol to be taken as necessary. She knows this goes through th e breast milk. Tdap has been offered during the and again is offered. No post epidural pr oblems. Final Diagnoses: Term intrauterine , 39 weeks 5 days, vaginal delivery, mild uterine hypoto nus, nuchal cord, Tdap offered. GUILELRMINA/ROBYN Voice ID: [id number] Report ID: [id number]
[2019-12-22 12:16] VITALS: BP 113/61; TEMP 98.2
[2019-12-22] MEDS ORDERED: Tdap (Diph,Pertuss(Acell),Tet Vac) 0.5 ML SYR IMVAC ONE (13:53)
[2019-12-23 05:04] LABS: RPR (Rapid Plasma Reagin) NON-REACT (NON-REACT)
[2019-12-24 21:14] LABS: HBsAG Nonreactive (Nonreactive)
== END 2019-12-22 13:25 | disposition home or self-care (01) | DRG 807 ==
LOC: 2ND-WC 03:51
PROVIDERS: ADMIT Specialist; ATTEND Specialist
PROC: 10E0XZZ Delivery of Products of Conception, External Approach (ICD-10-PCS; principal; 2019-12-21)
PROC: 0HQ9XZZ Repair Perineum Skin, External Approach (ICD-10-PCS; 2019-12-21)
PROC: 3E0334Z Introduction of Serum, Toxoid and Vaccine into Peripheral Vein, Percutaneous Approach (ICD-10-PCS; 2019-12-22)
DX: O70.0 First degree perineal laceration during delivery (principal); Z37.0 Single live birth; O99.013 Anemia complicating pregnancy, third trimester; O62.2 Other uterine inertia; D64.9 Anemia, unspecified; Z3A.39 39 weeks gestation of pregnancy; Z67.90 Unspecified blood type, Rh positive; Z23 Encounter for immunization
CPT/HCPCS: 36415; 81003; 81015; 85025; 86592; 86901; 87086; 87088; 87340; 90471; 90715; J0595; J2210; J2550; J2590; J2795; J3010; J7120